=== PATIENT | female | born 1990 | race Caucasian/White ===

== ENCOUNTER → 2021-02-28 15:28 | Outpatient (CLI) | payer OTHER, SELFPAY ==
--- NOTE | ~2021-02-28 | XR_ITS ---
EXAMINATION: XR chest 2V DATE: 02/28/2021 16:01 INDICATION: Chronic neck pain TECHNIQUE: PA and lateral views of the chest were obtained. COMPARISON: Chest radiograph dated 01/06/2015 FINDINGS: The lungs remain clear with no focal airspace opacities, pulmonary edema, pleural effusion or pneumot horax. The cardiomediastinal silhouette is normal. Visualized bones and soft tissues are unremarkable . IMPRESSION: 1. Normal chest radiograph. 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 Normal chest radiograph.
--- NOTE | ~2021-02-28 | XR_ITS ---
EXAMINATION:XR cervical spine 4-5V DATE: 02/28/2021 16:01 INDICATION: Chronic neck pain. TECHNIQUE: AP, lateral, lateral swimmers and odontoid views of the cervical spine are provided. COMPARISON: None FINDINGS: Vertebral body heights are normal. Slight kyphosis at C5-C6 with negligible anterior disc height loss . Remaining disc heights are normal. Odontoid is intact. Normal atlantoaxial interval. Mild facet os teoarthritis at C7-T1. Prevertebral soft tissues are normal. Visualized apices of the lungs are filemon r. IMPRESSION: 1. Slight kyphosis with negligible anterior disc height loss at C5-C6. Reviewed, dictated and finalized at location A. [facility]
== END ==
PROVIDERS: PCP Emergency Medicine; Visit Provider Emergency Medicine
DX: Z72.0 Tobacco use (principal)
CPT/HCPCS: 71046; 72050

== ENCOUNTER → 2021-07-21 01:38 | Outpatient (CLI) | payer OTHER, SELFPAY ==
[2021-07-21 16:55] LABS: SARS-CoV-2 RNA PCR Negative
== END ==
PROVIDERS: PCP Emergency Medicine; Visit Provider Emergency Medicine
DX: J06.9 Acute upper respiratory infection, unspecified (principal); Z20.822 Contact with and (suspected) exposure to COVID-19
CPT/HCPCS: C9803; U0003; U0005

== ENCOUNTER 2021-08-22 14:07 | Emergency (ER) | payer OTHER, SELFPAY ==
[2021-08-22 14:28] VITALS: BP 112/79; PULSE 78; RESP 18; TEMP 36.8; O2SAT 97
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
--- NOTE | 2021-08-22 15:30 | PC.NURSE ---
MEDS present and assessed patient.
[2021-08-22] MEDS: AZITHROMYCIN 250 MG TABLET 2000 MG PO (16:10)
[2021-08-22 16:20] LABS: Appearance Urine Clear (Clear); Bilirubin Urine Negative (Negative); Blood Urine Trace-lysed (Negative); Color Urine Yellow (Yellow); Glucose Urine UA Negative (Negative); Ketones Urine Negative (Negative); Leukocyte Esterase Ur 2+ LEU/UL (Negative); Nitrate Urine Negative (Negative); Protein Urine Negative (Negative); Specific Grav Ur 1.025 (1.001-1.035); Urobilinogen Urine 0.2 mg/dL (<2.0); pH Urine 5.5 (5.0-9.0)
[2021-08-22 16:28] LABS: Mucus Urine Rare /lpf; Squamous Epithelial Cell Urine Many /hpf (Few)
[2021-08-22 16:29] LABS: Add Urine Microscopic? YES
== END 2021-08-22 16:34 | disposition home or self-care (01) ==
LOC: ANHED 15:56
PROVIDERS: Emergency Provider Nurse Practitioner Family; PCP Emergency Medicine
DX: T74.21XA Adult sexual abuse, confirmed, initial encounter (principal); Y07.9 Unspecified perpetrator of maltreatment and neglect; F17.200 Nicotine dependence, unspecified, uncomplicated
CPT/HCPCS: 81001; 81025; 99285; A9270

== ENCOUNTER 2022-04-11 13:58 | Emergency (ER) | payer OTHER, SELFPAY ==
--- NOTE | ~2022-04-11 | CT_ITS ---
EXAMINATION: CT abdomen pelvis w con DATE: 04/11/2022 17:36 INDICATION: Right lower quadrant abdominal pain. Bilateral flank pain. Urinary tract infection. TECHNIQUE: Computed tomography (CT) of the abdomen and pelvis was performed with 100 mL Omnipaque-350 intravenous contrast. Automated exposure control and iterative reconstruction technique were employe d. The dose-length product was 288.55 mGy-cm. COMPARISON: None FINDINGS: Lung bases are clear. Heart size is normal. No pericardial or pleural effusion. Mild focal hepatic st eatosis at the ligamentum teres. Liver, gallbladder, spleen, pancreas, bilateral adrenal glands and l eft kidney are normal. There are a couple geographic regions of decreased parenchymal enhancement wit h in edema resulting associated slight bulging of the renal capsule at the upper and lower poles of t he right kidney consistent with pyelonephritis. There is mild colonic diverticulosis with a sigmoid p redominance. There is no adjacent inflammatory change to suggest diverticulitis. Small bowel and raven endix are normal. Bladder, anteverted uterus and right adnexa are normal. 1 cm likely corpus luteum c yst with thin peripheral rim of enhancement at the left ovary. Minimal likely physiologic free fluid in the pelvis. No abscess or free intraperitoneal gas. Multiple phleboliths in the pelvis. No patholo gically enlarged abdominal or pelvic lymphadenopathy. Bones are unremarkable. IMPRESSION: 1. Small hypoenhancing likely edematous regions in the right kidney consistent with pyelonephritis. Reviewed, dictated and finalized at location A. [facility]
--- NOTE | ~2022-04-11 | US_ITS ---
EXAMINATION: US pelvic complete w TV DATE: 04/11/2022 17:05 INDICATION: Suspicion for pelvic inflammatory disease with right lower quadrant pain TECHNIQUE: Multiple transabdominal and endovaginal sonographic images of the pelvis were obtained. COMPARISON: None. FINDINGS: The uterus measures 7.9 x 3.7 x 4.7 cm. The endometrial complex measures mm in thickness. The right ovary is unable to be visualized due to shadowing bowel in the right adnexal region. The left ovary m easures 2.5 x 1.2 x 2.0 cm. A couple small anechoic left ovarian cysts/follicles, the larger measurin g 10 mm. Vascular flow identified in the left ovary on color Doppler. Minimal anechoic likely physiol ogic free fluid in the cul-de-sac. IMPRESSION: 1. Normal uterus and left ovary with minimal likely physiologic free fluid in the cul-de-sac. 2. Shadowing bowel gas obscures the right adnexal region. 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 Normal uterus and left ovary with minimal likely physiologic free fluid in t he cul-de-sac. 2. Shadowing bowel gas obscures the right adnexal region.
[2022-04-11 14:14] VITALS: BP 131/78; PULSE 97; RESP 16; TEMP 36.3; O2SAT 100
--- NOTE | 2022-04-11 14:31 | ED.GENADULT ---
HPI - General Adult General Chief complaint: Urogenital-Female Stated complaint: std check Time Seen by Provider: 04/11/22 14:15 Source: patient Mode of arrival: ambulatory Limitations: no limitations History of Present Illness HPI narrative: Patient is a 31 y/o female who presents to the ED with c/o dysuria, flank pain, vaginal discharge. Patient reports having dysuria, lower abdominal pain, abnormal vaginal discharge for the last week and a half. She thought she may have a urinary tract infection or STD and started taking [id number] UTI pills. She does mention she is currently sexually active and was recently exposed to a partner who stated they started taking penicillin, but they would not say why. Patient would like to be tested and treated for STDs. Over the last 2 days, patient has had lower back pain, as well. She has an appt with her PCP at [facility] on Saturday, but patient states she could not wait that long. She denies any fevers or chills, nausea, vomiting, diarrhea, constipation, hematuria. Related Data Allergies Allergy/AdvReac Type Severity Reaction Status Date / Time cephalexin Allergy Intermediate Hives / Verified 04/11/22 14:19 Red Face sulfamethoxazole Allergy Intermediate Hives / Verified 04/11/22 16:25 Red Face trimethoprim Allergy Intermediate Hives / Verified 04/11/22 16:25 Red Face amoxicillin Allergy Unknown Hives Verified 04/11/22 16:25 clindamycin Allergy Unknown Hives Verified 04/11/22 16:25 Penicillins Allergy Unknown Nausea and Verified 04/11/22 16:25 Vomiting Sulfa (Sulfonamide Allergy Unknown Hives Verified 04/11/22 16:25 Antibiotics) Review of Systems Review of Systems: CONSTITUTIONAL: Denies fever, chills, or sweats. CARDIOVASCULAR: Denies chest pain, palpitations, or edema. RESPIRATORY: Denies cough or dyspnea. GASTROINTESTINAL: See HPI. GENITOURINARY: See HPI. SKIN: Denies rash or itching. MUSCULOSKELETAL: See HPI. All systems reviewed & are unremarkable except as noted in HPI and below PMFSH Past Medical History Medical History Chronic active hepatitis C Surgical History Surgical History No pertinent past surgical history Social History Social History Smoking status: Current every day smoker Substance use: former Substance use type: heroin, amphetamines and methamphetamine Exam Narrative: GENERAL: Well appearing, well-nourished, non-toxic, in no acute distress. HEAD: Normocephalic, atraumatic. NECK: Supple. No adenopathy, no masses. RESPIRATORY: Airway patent, respirations nonlabored. Clear to auscultation bilaterally, no rales, rhonchi, wheezing. CARDIOVASCULAR: Regular rate and rhythm without murmurs, rubs, or gallops. Peripheral pulses 2+ and equal bilaterally. ABDOMINAL: Soft, mild nonspecific tenderness throughout lower abdomen, no significant focal tenderness, nondistended, no hepatosplenomegaly. Normoactive BS. +CVA tenderness to percussion on R side. PELVIC: Normal external genitalia. Moderate amount of malodorous thick white vaginal discharge. Normal-appearing cervix. Minimal discomfort with pelvic exam, no significant CMT. MUSCULOSKELETAL: Moves all extremities. Strength/ROM intact without gross deformities. SKIN: Warm, dry, normal color. No rashes. NEURO: A&O X3. Speech clear. Cranial nerves II-XII grossly intact. Steady gait. No ataxic movements. PSYCHIATRIC: Appropriate mood and affect. Normal interaction. Course Vital Signs Vital signs: Vital Signs Temperature 97.4 F L 04/11/22 14:14 Pulse Rate 97 04/11/22 14:14 Respiratory Rate 16 04/11/22 14:14 Blood Pressure 131/78 04/11/22 14:14 Pulse Oximetry 100 04/11/22 14:14 Temperature 97.4 F L 04/11/22 14:14 Pulse Rate 97 04/11/22 14:14 Respiratory Rate 16 02/0
[2022-04-11 15:05] LABS: Basophils Percent Auto 0.2 % (0.2-1.2); Eosinophils Percent Auto 0.1 % (0-4.4); Hematocrit 43.4 % (37.0-47.0); Hemoglobin 13.6 g/dL (12.0-15.0); Immature Granulocyte Absolute 0.06 K/mm3 (0.00-0.031); Immature Granulocyte Percent A 0.4 % (0-0.5); Lymphocytes Absolute Auto 1.14 K/mm3 (0.9-3.2); Lymphocytes Percent Auto 7.9 % (18.3-44.2); Mean Corpuscular HGB Conc 31.3 g/dl (32-36); Mean Corpuscular Hemoglobin 28.5 pg (26-34); Mean Corpuscular Volume 90.8 fl (80-100); Mean Platelet Volume 8.8 fl (7.4-10.4); Monocytes Absolute Auto 1.1 K/mm3 (0.1-0.6); Monocytes Percent Auto 7.7 % (2.6-8.5); Neutrophils Absolute Auto 12.1 K/mm3 (1.3-6.7); Neutrophils Percent Auto 83.7 % (45.5-73.1); Platelet Count Result 271 k/mm3 (150-375); Red Blood Count 4.78 M/mm3 (4.2-5.4); Red Cell Distribution Width 14.4 % (11.5-14.5); White Blood Count 14.5 K/mm3 (4.5-10.0)
[2022-04-11 15:07] LABS: Appearance Urine Slightly Cloudy (Clear); Bilirubin Urine Negative (Negative); Blood Urine 2+ (Negative); Color Urine Yellow (Yellow); Glucose Urine UA Negative (Negative); Ketones Urine Negative (Negative); Leukocyte Esterase Ur 1+ LEU/UL (Negative); Nitrate Urine Negative (Negative); Protein Urine 1+ mg/dL (Negative); Urobilinogen Urine 0.2 mg/dL (<2.0)
[2022-04-11 15:16] LABS: Alanine Aminotransferase 14 U/L (6-35); Albumin Level 4.4 g/dL (3.5-5.1); Alkaline Phosphatase 112 U/L (38-126); Anion Gap 3 mmol/L (8-16); Aspartate Amino Transferase 20 U/L (14-36); Bilirubin,Total 0.6 mg/dL (0.2-1.3); Blood Urea Nitrogen 11 mg/dL (7-17); Calcium 9.2 mg/dL (8.4-10.2); Carbon Dioxide 30 mmol/L (22-30); Chloride 101 mmol/L (98-107); Estimated CRCL calculation 98 ml/min; Estimated Glomerular Filt Rate > 60; Glucose 95 mg/dL (65-110); Sodium 134 mmol/L (137-145)
[2022-04-11 15:24] LABS: Add Urine Microscopic? YES; Bacteria Urine Trace /hpf; Mucus Urine Rare /lpf; Squamous Epithelial Cell Urine Few /hpf (Few); WBC Urine 51-75 /hpf
[2022-04-11 15:57] LABS: HIV 1/2 Ab P24 Ag Result Negative (Negative)
[2022-04-11] MEDS: SODIUM CHLORIDE 0.9% IV 1,000 ML 999 ML IV CONT (17:20)
[2022-04-11] MEDS: AZITHROMYCIN 250 MG TABLET 2000 MG PO (18:27)
[2022-04-11] MEDS: GENTAMICIN SULFATE INJ 80 MG/2 ML VIAL 240 MG IM (19:02)
[2022-04-11 19:19] VITALS: BP 118/79; PULSE 77; RESP 18; TEMP 36.6; O2SAT 99
[2022-04-12 16:03] LABS: Rapid Plasma Reagin Non-Reactive (NonReactive)
== END 2022-04-11 19:21 | disposition home or self-care (01) ==
PROVIDERS: Emergency Provider Physician Assistant; PCP Emergency Medicine
DX: N12 Tubulo-interstitial nephritis, not specified as acute or chronic (principal); A59.9 Trichomoniasis, unspecified; Z20.2 Contact with and (suspected) exposure to infections with a predominantly sexual mode of transmission
CPT/HCPCS: 36415; 74177; 76830; 76856; 80053; 81001; 81025; 85025; 86592; 86703; 87070; 87077; 87086; 87186; 87491; 87591; 87808; 96361; 96365; 96372; 99284; A9270; G0432; J0131; J1580; J7030; Q9967

== ENCOUNTER 2022-08-29 10:25 | Emergency (ER) | payer OTHER, SELFPAY ==
--- NOTE | ~2022-08-29 | US_ITS ---
EXAMINATION: US pelvic complete w TV DATE: 08/29/2022 12:19 INDICATION: Pelvic cramping and low back pain TECHNIQUE: Multiple transabdominal and endovaginal sonographic images of the pelvis were obtained. COMPARISON: 04/11/2022 FINDINGS: The uterus measures 9.3 x 6.4 x 4.9 cm. The endometrial complex measures 9 mm. The right ov zoey measures 1.9 x 2.2 x 2.2 cm. The left ovary measures 3.2 x 2.5 x 1.4 cm. There is normal vascular flow in the ovaries. There is no free fluid in the pelvis. IMPRESSION: 1. No sonographic correlate for the patient's symptoms. Reviewed, dictated and finalized at location []
[2022-08-29 10:27] VITALS: BP 121/74; PULSE 69; RESP 16; TEMP 36.9; O2SAT 99
[2022-08-29 10:44] VITALS: O2SAT 95
--- NOTE | 2022-08-29 10:44 | ED.FEMALEGU ---
HPI - Female Genitourinary General Chief complaint: Urogenital-Female Stated complaint: UTI Time Seen by Provider: 08/29/22 10:33 History of Present Illness HPI Narrative: Patient is a 32-year-old female here for evaluation of pelvic cramping, bilateral low back pain, malodorous vaginal discharge and dark urine x2 days. Patient is 9 days status post elective D&C at 9 weeks. Patient was doing well until 2 days ago when she developed the above symptoms. She denies any vaginal bleeding, dysuria, urgency, frequency, unilateral low back pain, fevers or chills. She has attempted ibuprofen 600 without relief of her symptoms. She is requesting STI tests. Related Data Allergies Allergy/AdvReac Type Severity Reaction Status Date / Time cephalexin Allergy Intermediate Hives / Verified 08/29/22 10:50 Red Face sulfamethoxazole Allergy Intermediate Hives / Verified 08/29/22 10:50 Red Face trimethoprim Allergy Intermediate Hives / Verified 08/29/22 10:50 Red Face amoxicillin Allergy Unknown Hives Verified 08/29/22 10:50 clindamycin Allergy Unknown Hives Verified 08/29/22 10:50 Penicillins Allergy Unknown Nausea and Verified 08/29/22 10:50 Vomiting Sulfa (Sulfonamide Allergy Unknown Hives Verified 08/29/22 10:50 Antibiotics) Review of Systems Review of Systems: Gen.: Denies fevers or chills Eyes: Denies eye pain or visual change ENT: Denies congestion Respiratory: Denies shortness of breath or cough CV: Denies chest pain or palpitations GI: Reports pelvic pain reports dark urine and vaginal discharge Musculoskeletal: Denies back pain or muscle pain Neuro: Denies numbness, tingling, weakness or focal weakness Skin: Denies rash Except as documented, all other systems reviewed and negative [facility] Past Medical History Medical History Chronic active hepatitis C Surgical History Surgical History No pertinent past surgical history Social History Social History Smoking status: Current every day smoker Substance use: former Substance use type: heroin, amphetamines and methamphetamine Exam Narrative: APPEARANCE: No acute distress, nontoxic, resting in bed EYES: EOMI HEENT: Normocephalic, atraumatic, OMM RESPIRATORY: No respiratory distress Clear to auscultation bilaterally with no rhonchi wheezing or rales. CARDIOVASCULAR: Regular rate and rhythm without murmurs rubs or gallops. 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 no CMT. MUSCULOSKELETAL: Moves all extremities. No clubbing, cyanosis or edema. NEURO: Awake and alert. Following commands, speech normal, no focal deficits SKIN:: Warm, dry. No rashes lesions or abrasions PSYCHIATRIC: Normal affect/mood, Course Vital Signs Vital signs: Vital Signs Temperature 98.5 F 08/29/22 10:27 Pulse Rate 69 08/29/22 10:27 Respiratory Rate 16 08/29/22 10:27 Blood Pressure 121/74 08/29/22 10:27 Pulse Oximetry 99 08/29/22 10:27 Oxygen Delivery Room Air 08/29/22 10:27 Temperature 98.5 F 08/29/22 10:27 Pulse Rate 69 08/29/22 10:27 Respiratory Rate 16 08/29/22 10:27 Blood Pressure 107/72 08/29/22 10:46 Pulse Oximetry 99 08/29/22 10:47 Oxygen Delivery Room Air 08/29/22 10:27 MDM - Female Genitourinary MDM Narrative Medical decision making narrative: 32-year-old female here for evaluation of lower abdominal cramping several days after elective D&C with some urinary symptoms. She is nontoxic in appearance with normal vital signs, no abdominal tenderness on examination. Her quant is 16.2. Ultrasound without evidence of retained products. Urine does appear infected.
[2022-08-29 10:45] VITALS: BP 115/79; O2SAT 98
[2022-08-29 10:46] VITALS: BP 107/72; O2SAT 100
[2022-08-29 10:47] VITALS: O2SAT 99
[2022-08-29 11:41] LABS: Basophils Percent Auto 0.3 % (0.2-1.2); Eosinophils Absolute Auto 0.1 K/mm3 (0-0.3); Eosinophils Percent Auto 1.2 % (0-4.4); Hematocrit 36.1 % (37.0-47.0); Hemoglobin 11.8 g/dL (12.0-15.0); Immature Granulocyte Absolute 0.01 K/mm3 (0.00-0.031); Immature Granulocyte Percent A 0.2 % (0-0.5); Lymphocytes Absolute Auto 1.39 K/mm3 (0.9-3.2); Lymphocytes Percent Auto 23.1 % (18.3-44.2); Mean Corpuscular HGB Conc 32.7 g/dl (32-36); Mean Corpuscular Hemoglobin 29.3 pg (26-34); Mean Corpuscular Volume 89.6 fl (80-100); Mean Platelet Volume 9.1 fl (7.4-10.4); Monocytes Absolute Auto 0.4 K/mm3 (0.1-0.6); Monocytes Percent Auto 6.5 % (2.6-8.5); Neutrophils Absolute Auto 4.1 K/mm3 (1.3-6.7); Neutrophils Percent Auto 68.7 % (45.5-73.1); Platelet Count Result 290 k/mm3 (150-375); Red Blood Count 4.03 M/mm3 (4.2-5.4)
[2022-08-29 11:44] LABS: Appearance Urine Cloudy (Clear); Bacteria Urine 1+ /hpf; Bilirubin Urine Negative (Negative); Blood Urine 2+ (Negative); Color Urine Yellow (Yellow); Glucose Urine UA Negative (Negative); Ketones Urine Negative (Negative); Leukocyte Esterase Ur 1+ LEU/UL (Negative); Nitrate Urine Negative (Negative); Non Pathogenic Casts 0-2; Protein Urine Negative (Negative); Specific Grav Ur 1.026 (1.001-1.035); Squamous Epithelial Cell Urine Few /hpf (Few); pH Urine 5.5 (5.0-9.0)
[2022-08-29 11:51] LABS: Anion Gap 5 mmol/L (8-16); Blood Urea Nitrogen 18 mg/dL (7-17); Calcium 8.9 mg/dL (8.4-10.2); Carbon Dioxide 21 mmol/L (22-30); Chloride 111 mmol/L (98-107); Estimated CRCL calculation 97 ml/min; Estimated Glomerular Filt Rate > 60; Glucose 97 mg/dL (65-110); Potassium 3.8 mmol/L (3.4-5.0); Sodium 137 mmol/L (137-145)
--- NOTE | 2022-08-29 12:04 | PC.NURSE ---
pt. off floor to ultrasound at 11:43 and returned to room at 12:00
[2022-08-29 12:05] LABS: Add Urine Microscopic? YES
[2022-08-29 12:08] LABS: Beta HCG Quantitative 16.21 mIU/ML
== END 2022-08-29 13:05 | disposition home or self-care (01) ==
PROVIDERS: Emergency Provider Physician Assistant
DX: N39.0 Urinary tract infection, site not specified (principal); B18.2 Chronic viral hepatitis C; F17.210 Nicotine dependence, cigarettes, uncomplicated; Z98.890 Other specified postprocedural states
CPT/HCPCS: 36415; 76830; 76856; 80048; 81001; 84702; 85025; 87070; 87086; 87491; 87591; 87808; 99284

== ENCOUNTER 2023-02-19 12:11 | Emergency (ER) | payer OTHER, SELFPAY ==
[2023-02-19 12:20] VITALS: BP 133/81; PULSE 69; RESP 16; TEMP 37; O2SAT 99
--- NOTE | 2023-02-19 12:37 | ED.GENADULT ---
HPI - General Adult General Chief complaint: Wound/Laceration Stated complaint: Rash/Cough Source: patient Mode of arrival: ambulatory Limitations: no limitations History of Present Illness HPI narrative: 32 y/o female presented for c/o cough with yellow/green sputum for a few days. Endorses subjective fever yesterday. Also reports itchy rash to left lower chest spreading over the past few weeks. Started as a small red round area. Has been applying hibiclens, alcohol, and neosporin. Denies any other locations of skin lesions. Denies lip, tongue, or throat swelling, shortness of breath or wheezing. Denies changes to soap, detergent, lotion, or any other exposures. No one else in the house or any contacts with similar symptoms. Smokes 1/2ppd. Related Data Allergies Allergy/AdvReac Type Severity Reaction Status Date / Time cephalexin Allergy Intermediate Hives / Verified 02/19/23 12:24 Red Face sulfamethoxazole Allergy Intermediate Hives / Verified 02/19/23 12:24 Red Face trimethoprim Allergy Intermediate Hives / Verified 02/19/23 12:24 Red Face amoxicillin Allergy Unknown Hives Verified 02/19/23 12:24 clindamycin Allergy Unknown Hives Verified 02/19/23 12:24 Penicillins Allergy Unknown Nausea and Verified 02/19/23 12:24 Vomiting Sulfa (Sulfonamide Allergy Unknown Hives Verified 02/19/23 12:24 Antibiotics) Review of Systems Review of Systems: CONSTITUTIONAL: Denies body aches, fever, chills, or sweats. EYES: Denies visual changes, redness, or discharge. ENT: Denies rhinorrhea, congestion CARDIOVASCULAR: Denies chest pain, palpitations, or edema. RESPIRATORY: reports cough Denies dyspnea. GASTROINTESTINAL: Denies abdominal pain, nausea, vomiting, or diarrhea. SKIN: reports rash MUSCULOSKELETAL: Denies back pain, joint pain, or myalgia. NEUROLOGIC: Denies headache, numbness, tingling, or weakness. [facility] Past Medical History Medical History Chronic active hepatitis C Surgical History Surgical History No pertinent past surgical history Social History Social History Smoking status: Current every day smoker Substance use: former Substance use type: heroin, amphetamines and methamphetamine Comments At time of signature, I have reviewed and agree with nursing past medical, surgical, social and family history unless otherwise noted. Please see nursing chart for further information. There is no relevant family history pertinent to the presenting complaint Exam Narrative: GENERAL: Well-appearing HEAD: Normocephalic, atraumatic. EYES: conjunctivae clear, and EOMI. ENT: Mucous membranes moist. Oropharynx without edema, erythema or lesions. NECK: Supple. No lymphadenopathy CHEST: Clear to auscultation. HEART: Regular rate and rhythm. SKIN: Warm, dry. Erythematous patch to left lower anterior ribs approx 4cm diameter. Center is clear and smooth with red edges. No induration, fluctuance, or drainage. Nontender. NEURO: Alert and oriented x3. GI: Abdomen image: 1. area of rash Course Course Emergency Course: Patient is aware of diagnosis, understands and agrees to treatment plan. Anticipatory guidance given. Patient agrees to follow-up as directed and is aware of reasons to seek care at the emergency department. Portions of this record may have been created with voice recognition software Level of Care: Express Care Visit Vital Signs Vital signs: Vital Signs Temperature 98.6 F 02/19/23 12:20 Pulse Rate 69 02/19/23 12:20 Respiratory Rate 16 02/19/23 12:20 Blood Pressure 133/81 02/19/23 12:20 Pulse Oximetry 99 02/19/23 12:20 Oxygen Delivery Room Air 02/19/23 12:20 Temperature 98.6 F 02/19/23 12:20 Pulse Rate 69 02/19/23 12:20 Respiratory Rate 16 02/19/23 12:20 B
== END 2023-02-19 13:09 | disposition home or self-care (01) ==
PROVIDERS: Emergency Provider Nurse Practitioner Family
DX: L30.9 Dermatitis, unspecified (principal); J40 Bronchitis, not specified as acute or chronic; B18.2 Chronic viral hepatitis C; F17.210 Nicotine dependence, cigarettes, uncomplicated
CPT/HCPCS: 99213; G0463

== ENCOUNTER 2023-05-03 15:33 | Emergency (ER) | payer OTHER, SELFPAY ==
[2023-05-03 15:49] VITALS: BP 125/77; PULSE 75; RESP 16; TEMP 36.9; O2SAT 100
--- NOTE | 2023-05-03 16:01 | ED.FEMALEGU ---
HPI - Female Genitourinary General Chief complaint: Urogenital-Female Stated complaint: STD Time Seen by Provider: 05/03/23 15:34 Source: patient Mode of arrival: ambulatory Limitations: no limitations History of Present Illness HPI Narrative: Patient is a 32-year-old female who presents with concern for STD testing. Patient has had abnormal discharge intermittently for 2 weeks. Patient states she has BV frequently. Patient also concern for due to breast tenderness. Last menstrual cycle was April 09. Has had a new partner for the last month. MD elicited complaint: dysuria Related Data Allergies Allergy/AdvReac Type Severity Reaction Status Date / Time cephalexin Allergy Intermediate Hives / Verified 05/03/23 16:09 Red Face sulfamethoxazole Allergy Intermediate Hives / Verified 05/03/23 16:09 Red Face trimethoprim Allergy Intermediate Hives / Verified 05/03/23 16:09 Red Face amoxicillin Allergy Unknown Hives Verified 05/03/23 16:09 clindamycin Allergy Unknown Hives Verified 05/03/23 16:09 Penicillins Allergy Unknown Nausea and Verified 05/03/23 16:09 Vomiting Sulfa (Sulfonamide Allergy Unknown Hives Verified 05/03/23 16:09 Antibiotics) Review of Systems Review of Systems: All systems reviewed & are unremarkable except as noted in HPI and below Constitutional: Constitutional: Denies chills, Denies fever(s), Denies headache(s), Denies malaise and Denies weakness Eyes: Eyes: Denies change in vision, Denies eye discharge and Denies irritation ENT: Denies otalgia, Denies headache(s), Denies nasal congestion, Denies nasal discharge, Denies sinus pain and Denies sore throat Cardiovascular: Cardiovascular: Denies chest pain, Denies edema, Denies palpitations and Denies dyspnea Respiratory: Respiratory: Denies cough and Denies dyspnea Gastrointestinal: Gastrointestinal: Denies abdominal pain, Denies diarrhea, Denies nausea and Denies vomiting Genitourinary: Genitourinary: Denies hematuria, Denies nocturia, Denies dysuria, Denies flank pain, Denies urinary urgency, Reports vaginal discharge and Reports vaginal odor Musculoskeletal: Musculoskeletal: Denies back pain and Denies numbness Integumentary/Breasts: Skin/Breast: Denies pruritus and Denies rash Neurologic: Denies headache(s), Denies numbness and Denies weakness Psychiatric: Psychiatric: Reports no additional psychiatric complaints Endocrine: Endocrine: Denies palpitations PMFSH Past Medical History Medical History Chronic active hepatitis C Surgical History Surgical History No pertinent past surgical history Social History Social History Smoking status: Current every day smoker Substance use: former Substance use type: heroin, amphetamines and methamphetamine Comments At time of signature, agree with nursing past medical, surgical, social and family history. There is no relevant family history pertinent to the presenting complaint. Exam Const: General: cooperative, healthy appearing, comfortable, no acute distress and well nourished Nutritional Appearance: well nourished Orientation/consciousness: patient oriented x3 HENMT: Head: normocephalic and atraumatic Ears: external ears normal Face/Nose/Sinus: Normal external nose present, Normal nares present and normal facial exam Face and sinus: normal facial exam Eyes: General: appearance normal, both eyes and all related structures Pupils: Equal, round and reactive pupils present EOM: EOMs intact bilaterally Neck: Neck: normal visual inspection, full ROM and supple Chest: Chest palpation & inspection: normal inspection of the chest Resp: Effort & Inspection: normal respiratory effort and able to speak in complete sentences Cardio: Rate: regular rate Rhythm: regular rhythm GI: Inspection:
[2023-05-05 12:56] LABS: Trichomonas Vag PCR NOT DETECTED (NOT DETECTE)
[2023-05-05 12:57] LABS: Chlamydia trachomatis NOT DETECTED (NOT DETECTE); Neisseria gonorrhoeae PCR NOT DETECTED (NOT DETECTE)
== END 2023-05-03 16:40 | disposition home or self-care (01) ==
PROVIDERS: Emergency Provider Nurse Practitioner Family
DX: N76.0 Acute vaginitis (principal); Z20.2 Contact with and (suspected) exposure to infections with a predominantly sexual mode of transmission; F17.200 Nicotine dependence, unspecified, uncomplicated; B18.2 Chronic viral hepatitis C
CPT/HCPCS: 81003; 81025; 87491; 87591; 87661; 99213; G0463

== ENCOUNTER 2023-06-05 10:21 | Emergency (ER) | payer OTHER, SELFPAY ==
--- NOTE | ~2023-06-05 | US_ITS ---
EXAMINATION: US pelvic complete w TV DATE: 06/05/2023 12:24 INDICATION: Right lower quadrant abdominal pain. TECHNIQUE: Multiple transabdominal and transvaginal sonographic images of the pelvis were obtained. COMPARISON: Ultrasound pelvis 08/29/2022 FINDINGS: TRANSABDOMINAL ULTRASOUND: The uterus measures 8.7 x 3.7 x 5.1 cm. There is no free fluid in the pelvis. TRANSVAGINAL ULTRASOUND: The endometrial complex measures 6 mm in thickness. The right ovary measures 2.8 x 1.2 x 1.7 cm. The left ovary measures 2.0 x 2.0 x 2.4 cm. There is normal vascular flow in the ovaries. IMPRESSION: 1. Normal pelvis. Reviewed, dictated and finalized at location A. IMPRESSION: 1. Normal pelvis.
--- NOTE | ~2023-06-05 | CT_ITS ---
EXAMINATION: CT abdomen pelvis w con DATE: 06/05/2023 13:05 INDICATION: Low abdominal pain. Pelvic pain. TECHNIQUE: Computed tomography (CT) of the abdomen and pelvis was performed with 100 mL Omnipaque 350 intravenous contrast. Automated exposure control and iterative reconstruction technique were employe d. The dose-length product was 229.70 mGy-cm. COMPARISON: CT abdomen and pelvis 08/09/2022 FINDINGS: The visualized portions of the lung bases demonstrate minimal atelectasis. No pleural effus ion. The heart size is normal. No pericardial effusion. The liver, gallbladder, spleen, pancreas, adr enal glands, and kidneys are normal. There are no dilated loops of bowel. The appendix is normal. The re are no pathologically enlarged lymph nodes. There is no free intraperitoneal fluid. There is mild lumbar spondylosis. IMPRESSION: 1. No etiology for the patient's symptoms. Reviewed, dictated and finalized at location A.
[2023-06-05 10:58] VITALS: BP 118/75; PULSE 72; TEMP 36.4; O2SAT 100
[2023-06-05 11:51] LABS: Basophils Percent Auto 0.3 % (0.2-1.2); Eosinophils Absolute Auto 0.1 K/mm3 (0-0.3); Eosinophils Percent Auto 0.8 % (0-4.4); Hematocrit 40.3 % (37.0-47.0); Hemoglobin 12.7 g/dL (12.0-15.0); Immature Granulocyte Absolute 0.01 K/mm3 (0.00-0.031); Immature Granulocyte Percent A 0.2 % (0-0.5); Lymphocytes Absolute Auto 1.51 K/mm3 (0.9-3.2); Lymphocytes Percent Auto 23.1 % (18.3-44.2); Mean Corpuscular HGB Conc 31.5 g/dl (32-36); Mean Corpuscular Hemoglobin 29.1 pg (26-34); Mean Corpuscular Volume 92.4 fl (80-100); Mean Platelet Volume 9.5 fl (7.4-10.4); Monocytes Absolute Auto 0.6 K/mm3 (0.1-0.6); Monocytes Percent Auto 8.4 % (2.6-8.5); Neutrophils Absolute Auto 4.4 K/mm3 (1.3-6.7); Neutrophils Percent Auto 67.2 % (45.5-73.1); Platelet Count Result 263 k/mm3 (150-375); Red Blood Count 4.36 M/mm3 (4.2-5.4); Red Cell Distribution Width 13.8 % (11.5-14.5); White Blood Count 6.5 K/mm3 (4.5-10.0)
[2023-06-05 11:58] LABS: Appearance Urine Cloudy (Clear); Bacteria Urine None Seen /hpf; Bilirubin Urine Negative (Negative); Blood Urine Negative (Negative); Color Urine Yellow (Yellow); Glucose Urine UA Negative (Negative); Ketones Urine Negative (Negative); Leukocyte Esterase Ur Negative LEU/UL (Negative); Nitrate Urine Negative (Negative); Non Pathogenic Casts 0-2; Protein Urine Negative (Negative); RBC Urine 0-2 /hpf (0-2); Squamous Epithelial Cell Urine Occasional /hpf (Few); Urobilinogen Urine 0.2 mg/dL (<2.0); WBC Urine 0-5 /hpf (0-3)
[2023-06-05 11:59] LABS: Add Urine Microscopic? YES
[2023-06-05 12:03] LABS: Alanine Aminotransferase 13 U/L (6-35); Albumin Level 4.2 g/dL (3.5-5.1); Alkaline Phosphatase 100 U/L (38-126); Anion Gap 3 mmol/L (4-12); Aspartate Amino Transferase 21 U/L (14-36); Bilirubin,Total 0.4 mg/dL (0.2-1.3); Blood Urea Nitrogen 20 mg/dL (7-17); Calcium 9.5 mg/dL (8.4-10.2); Carbon Dioxide 29 mmol/L (22-30); Chloride 108 mmol/L (98-107); Estimated CRCL calculation 74 ml/min; Estimated Glomerular Filt Rate > 60; Glucose 82 mg/dL (65-110); Potassium 4.4 mmol/L (3.4-5.0); Sodium 140 mmol/L (137-145)
[2023-06-05] MEDS: KETOROLAC 30 MG/ML VIAL (*BKC) IV PUSH (12:50)
--- NOTE | 2023-06-05 13:22 | ED.GENADULT ---
HPI - General Adult General Chief complaint: Unspecified Stated complaint: pain after intercourse Time Seen by Provider: 06/05/23 10:56 History of Present Illness HPI narrative: Patient is a 32-year-old female who presents ER with lower abdominal pain in the pelvic region. Ongoing over last 4 days. Pain was sudden onset while having intercourse with her boyfriend. She felt the popping sound. Her boyfriend feels like there is a abnormal feeling inside the vagina since then. No vaginal bleeding or vaginal discharge. No fevers chills or sweats. Cannot identify aggravating or alleviating factors. She has not taken any oral pain medication. Related Data Allergies Allergy/AdvReac Type Severity Reaction Status Date / Time cephalexin Allergy Intermediate Hives / Verified 06/05/23 10:33 Red Face sulfamethoxazole Allergy Intermediate Hives / Verified 06/05/23 10:33 Red Face trimethoprim Allergy Intermediate Hives / Verified 06/05/23 10:33 Red Face amoxicillin Allergy Unknown Hives Verified 06/05/23 10:33 clindamycin Allergy Unknown Hives Verified 06/05/23 10:33 Penicillins Allergy Unknown Nausea and Verified 06/05/23 10:33 Vomiting Sulfa (Sulfonamide Allergy Unknown Hives Verified 06/05/23 10:33 Antibiotics) Review of Systems Review of Systems: All systems reviewed & are unremarkable except as noted in HPI and below Constitutional: Constitutional: Reports no additional constitutional complaints ENT: Reports system reviewed and no additional complaints, except as documented Cardiovascular: Cardiovascular: Reports no additional cardiovascular complaints Respiratory: Respiratory: Reports no additional respiratory complaints Gastrointestinal: Gastrointestinal: Reports abdominal pain, Denies constipation, Denies diarrhea, Denies nausea and Denies vomiting Genitourinary: Genitourinary: Denies abnormal vaginal bleeding, Denies nocturia, Reports dyspareunia, Denies dysuria, Reports pelvic pain and Denies vaginal discharge [facility] Past Medical History Medical History Chronic active hepatitis C Surgical History Surgical History No pertinent past surgical history Social History Social History Smoking status: Current every day smoker Substance use: former Substance use type: heroin, amphetamines and methamphetamine Exam Narrative: GENERAL: Well-appearing, well-nourished, and in no acute distress. HEAD: Normocephalic, atraumatic. ENT: Mucous membranes moist. CHEST: Clear to auscultation. No respiratory distress. HEART: Regular rate and rhythm. Normal peripheral pulses. ABDOMEN: Soft, Tender palpation right lower quadrant and right adnexa with guarding, nondistended.: Normal-appearing external genitalia. Speculum exam with normal appearing cervix without significant discharge. No bleeding. No CMT. EXTREMITIES: Normal range of motion. No edema. SKIN: Warm, dry, no rash. NEURO: Alert and oriented x3. PSYCH: Normal mood and affect. Course Course Emergency Course: patient informed of all lab and imaging results. Toradol for pain. Symptoms felt to be potentially related to a ruptured ovarian cyst. Discharge home. Vital Signs Vital signs: Vital Signs Temperature 97.6 F 06/05/23 10:58 Pulse Rate 72 06/05/23 10:58 Blood Pressure 118/75 06/05/23 10:58 Pulse Oximetry 100 06/05/23 10:58 Temperature 97.6 F 06/05/23 10:58 Pulse Rate 72 06/05/23 10:58 Blood Pressure 118/75 06/05/23 10:58 Pulse Oximetry 100 06/05/23 10:58 Medical Decision Making Vital Signs Vital Signs: Vital Signs Temperature 97.6 F 06/05/23 10:58 Pulse Rate 72 06/05/23 10:58 Blood Pressure 118/75 06/05/23 10:58 Pulse Oximetry 100 06/05/23 10:58 Temperature 97.6 F 06/05/23 10:58 Pulse
== END 2023-06-05 13:47 | disposition home or self-care (01) ==
PROVIDERS: Emergency Provider Emergency Medicine
DX: R10.2 Pelvic and perineal pain (principal); B18.2 Chronic viral hepatitis C; F17.200 Nicotine dependence, unspecified, uncomplicated
CPT/HCPCS: 36415; 74177; 76830; 76856; 80053; 81001; 81025; 85025; 96374; 99284; J1885; Q9967

== ENCOUNTER 2023-07-11 16:40 | Emergency (ER) | payer OTHER, SELFPAY ==
[2023-07-11 16:45] VITALS: BP 115/73; PULSE 78; RESP 14; TEMP 37; O2SAT 100
--- NOTE | 2023-07-11 16:45 | ED.FEMALEGU ---
HPI - Female Genitourinary General Chief complaint: Urogenital-Female Stated complaint: low back pain Time Seen by Provider: 07/11/23 16:45 Source: patient Mode of arrival: ambulatory Limitations: no limitations History of Present Illness HPI Narrative: Tuan is a 32-year-old female patient presenting to the clinic today with complaints of left-sided low back pain that has been ongoing for the last several weeks. She was seen in the ER on June 04. A CT of her abdomen pelvis and transvaginal ultrasound completed and those were normal. Her lab work was normal as well at that time. States she lost her antibiotic prescription that they gave her and was told she can come in and get a refill of the antibiotic. She is complaining of pain to the left flank. Denies any urine symptoms or denies any abnormal discharge. Is not concerned for any STI testing at this time. Related Data Allergies Allergy/AdvReac Type Severity Reaction Status Date / Time amoxicillin Allergy Intermediate Hives Verified 07/11/23 16:45 cephalexin Allergy Intermediate Hives / Verified 07/11/23 16:45 Red Face clindamycin Allergy Intermediate Hives Verified 07/11/23 16:45 Penicillins Allergy Intermediate Nausea and Verified 07/11/23 16:45 Vomiting Sulfa (Sulfonamide Allergy Intermediate Hives Verified 07/11/23 16:45 Antibiotics) sulfamethoxazole Allergy Intermediate Hives / Verified 07/11/23 16:45 Red Face trimethoprim Allergy Intermediate Hives / Verified 07/11/23 16:45 Red Face Review of Systems Review of Systems: Pertinent positives per HPI. Patient denies any fever, chills, rash, headache, visual changes, dizziness, cough, runny nose, sore throat, shortness of breath, chest pain, palpitations, nausea, vomiting, diarrhea, constipation, abdominal pain, or any urinary issues. [facility] Past Medical History Medical History Chronic active hepatitis C Surgical History Surgical History No pertinent past surgical history Social History Social History Smoking status: Current every day smoker Substance use: former Substance use type: heroin, amphetamines and methamphetamine Comments At the time of my signature, I reviewed and agree with the nursing past medical, surgical, social, and family history. There is no relevant family history pertinent to the patient complaint. Exam Narrative: General: Well-developed, well nourished, in no apparent distress. Head: Normocephalic, atraumatic. Cardio: Regular rate and rhythm, s1 and s2 normal, no murmur appreciated. Resp: Clear to auscultation bilaterally, no rhonchi, rales, wheezing or rubs. Abdomen: Soft, pliable, bowel sounds present in all quadrants, non-tender to palpation, no organomegly, left flank CVAT tenderness. deferred Course Course Emergency Course: Portions of this record may have been created with voice recognition software. Level of Care: Express Care Visit Vital Signs Vital signs: Vital signs reviewed MDM - Female Genitourinary MDM Narrative Medical decision making narrative: At the time of visit patient is resting comfortably on the exam table. Patient appears to be nontoxic. Labs: UA shows trace of blood. We will send urine for culture Plan: Differential diagnosis include kidney stone, ureteral stone, BV, STI, or muscle strain. Offered to do STI/bacterial vaginosis testing and patient declined. Urinalysis does not show any sign of infection. Reviewed scans from her visit and June and she denies that any the pain has changed. Denies any abnormal discharge. Is requesting antibiotics for her symptoms. Explained to her that she does not have any sign of infection to receive antibiotics. Patient reports that she will follow-up with her primary care doctor. Supportive me
== END 2023-07-11 17:45 | disposition home or self-care (01) ==
PROVIDERS: Emergency Provider Nurse Practitioner Family
DX: R10.9 Unspecified abdominal pain (principal); F17.200 Nicotine dependence, unspecified, uncomplicated
CPT/HCPCS: 81003; 87086; 99213; G0463

== ENCOUNTER 2023-08-29 13:14 | Emergency (ER) | payer OTHER, SELFPAY ==
[2023-08-29 13:44] VITALS: BP 145/79; PULSE 82; RESP 20; TEMP 36.7; O2SAT 99
== END 2023-08-29 16:26 | disposition left against medical advice (07) ==
PROVIDERS: Emergency Provider Emergency Medicine
DX: M54.50 Low back pain, unspecified (principal)
CPT/HCPCS: 99199

== ENCOUNTER 2023-08-31 09:19 | Emergency (ER) | payer OTHER, SELFPAY ==
[2023-08-31 09:27] VITALS: BP 115/76; PULSE 79; RESP 16; TEMP 36.6; O2SAT 97
--- NOTE | 2023-08-31 09:38 | ED.BACK ---
HPI - Back Pain/Injury General Chief Complaint: Back Pain/Injury Stated Complaint: lower back pain Time Seen by Provider: 08/31/23 09:21 History of Present Illness HPI Narrative: 33-year-old female presenting to the emergency department for evaluation for vaginal discharge, painful urination, back pain and abdominal pain. Patient also reports pain during intercourse. Patient was evaluated on 08/28 but had to leave prior to completing her medical workup. Related Data Allergies Allergy/AdvReac Type Severity Reaction Status Date / Time amoxicillin Allergy Intermediate Hives Verified 08/31/23 09:36 cephalexin Allergy Intermediate Hives / Verified 08/31/23 09:36 Red Face clindamycin Allergy Intermediate Hives Verified 08/31/23 09:36 Penicillins Allergy Intermediate Nausea and Verified 08/31/23 09:36 Vomiting Sulfa (Sulfonamide Allergy Intermediate Hives Verified 08/31/23 09:36 Antibiotics) sulfamethoxazole Allergy Intermediate Hives / Verified 08/31/23 09:36 Red Face trimethoprim Allergy Intermediate Hives / Verified 08/31/23 09:36 Red Face Review of Systems Review of Systems: All systems reviewed & are unremarkable except as noted in HPI and below PMFSH Past Medical History Medical History Chronic active hepatitis C Surgical History Surgical History No pertinent past surgical history Social History Social History Smoking status: Current every day smoker Substance use: former Substance use type: heroin, amphetamines and methamphetamine Exam Narrative: APPEARANCE: Well appearing, no pain, no distress, well-nourished. HEAD: normocephalic, atraumatic. EYES: PERRLA/EOMI, conjunctivae clear. NOSE: Normal no drainage EARS:TMS clear with good light reflex. THROAT: Pharynx clear, no exudate. NECK: Supple. No adenopathy, no masses. RESPIRATORY: Airway patent, respirations nonlabored. Clear to auscultation bilaterally, no rales, rhonchi, wheezing. CARDIOVASCULAR: Regular rate and rhythm without murmurs rubs or gallops. ABDOMINAL: Suprapubic tenderness to palpation MUSCULOSKELETAL: Moves all extremities. Strength/ROM intact, No edema, No calf tenderness. Pelvic exam: Non friable cervix, thick vaginal discharge NEURO: Alert. Cranial nerves II through XII intact. Grossly intact SKIN: Warm, dry. Normal Color Course Vital Signs Vital signs: Vital Signs Temperature 97.9 F 08/31/23 09:27 Pulse Rate 79 08/31/23 09:27 Respiratory Rate 16 08/31/23 09:27 Blood Pressure 115/76 08/31/23 09:27 Pulse Oximetry 97 08/31/23 09:27 Oxygen Delivery Room Air 08/31/23 09:27 Temperature 97.9 F 08/31/23 09:27 Pulse Rate 79 08/31/23 09:27 Respiratory Rate 16 08/31/23 09:27 Blood Pressure 115/76 08/31/23 09:27 Pulse Oximetry 97 08/31/23 09:27 Oxygen Delivery Room Air 08/31/23 09:27 MDM - Back Pain/Injury MDM Narrative Medical decision making narrative: 33-year-old female presenting to the emergency department for evaluation of low back pain, vaginal discharge and concern for STD. Patient was negative for Trichomonas chlamydia and gonorrhea. Urine is still concerning for underlying urinary tract infection. Patient has multiple medication allergies patient was started on Levaquin in the emergency department we treated with Levaquin for home. Patient was encouraged to have close follow-up with her primary care physician for checkup. All questions concerns were addressed. Differential Diagnosis Differential diagnosis: Likely other (Gonorrhea, chlamydia, Trichomonas, bacterial vaginosis, yeast infection, urinary tract infection) Lab Data Attestation: I reviewed the patient's lab results. Labs: Lab Results 08/31/23 08/31/23 Range/Units 09:46 09:54 Urine Color Yellow (Yellow)
[2023-08-31] MEDS: FLUCONAZOLE 150 MG TABLET PO (10:01)
[2023-08-31 10:33] LABS: Appearance Urine Cloudy (Clear); Bacteria Urine Rare /hpf; Bilirubin Urine Negative (Negative); Blood Urine Negative (Negative); Budding Yeast Urine Present /hpf; Color Urine Yellow (Yellow); Glucose Urine UA Negative (Negative); Ketones Urine Negative (Negative); Leukocyte Esterase Ur 2+ LEU/UL (Negative); Nitrate Urine Negative (Negative); Non Pathogenic Casts 0-2; Protein Urine Negative (Negative); Specific Grav Ur 1.017 (1.001-1.035); Squamous Epithelial Cell Urine Moderate /hpf (Few); Urobilinogen Urine 0.2 mg/dL (<2.0); WBC Urine 21-50 /hpf (0-3); pH Urine 6.5 (5.0-9.0)
[2023-08-31 10:39] LABS: Add Urine Microscopic? YES
[2023-08-31 11:06] LABS: Trichomonas Vag PCR NOT DETECTED (NOT DETECTE)
[2023-08-31 11:30] LABS: Chlamydia trachomatis NOT DETECTED (NOT DETECTE); Neisseria gonorrhoeae PCR NOT DETECTED (NOT DETECTE)
[2023-08-31] MEDS: levoFLOXacin 500 MG TABLET PO (11:53)
== END 2023-08-31 11:56 | disposition home or self-care (01) ==
PROVIDERS: Emergency Provider Emergency Medicine
DX: N39.0 Urinary tract infection, site not specified (principal); B18.2 Chronic viral hepatitis C; F17.200 Nicotine dependence, unspecified, uncomplicated
CPT/HCPCS: 81001; 81025; 87070; 87077; 87086; 87088; 87186; 87491; 87591; 87661; 99284; A9270

== ENCOUNTER 2023-09-15 16:18 | Emergency (ER) | payer OTHER, SELFPAY ==
[2023-09-15 16:21] VITALS: BP 126/75; PULSE 78; RESP 18; TEMP 36.7; O2SAT 100
--- NOTE | 2023-09-15 19:25 | PC.NURSE ---
Patient called for room assignment, no answer and not seen in waiting room.
--- NOTE | 2023-09-15 19:57 | PC.NURSE ---
pt called for room, no answer
== END 2023-09-15 20:52 | disposition left against medical advice (07) ==
LOC: ANHED 20:20
DX: O26.891 Other specified pregnancy related conditions, first trimester (principal); R10.30 Lower abdominal pain, unspecified
CPT/HCPCS: 99199

== ENCOUNTER 2023-09-16 08:51 | Emergency (ER) | payer OTHER, SELFPAY ==
--- NOTE | 2023-09-16 08:53 | ED.PREGNANCY ---
HPI - General Chief complaint: Unspecified Stated complaint: Test Time Seen by Provider: 09/16/23 08:52 Source: patient Mode of arrival: ambulatory Limitations: no limitations History of Present Illness HPI Narrative: Teresa is a 33-year-old female patient presenting to the clinic today for a documented test. Last menstrual period was July 21, 2023. States she took a test last week and it was positive. Is having some abdomen cramping but denies any vaginal bleeding or discharge. Is reporting some urinary frequency and urgency as well. No fever, chills, or body aches. Related Data Home Medications Medication Instructions Recorded Confirmed No Home Medications 09/16/23 09/16/23 Allergies Allergy/AdvReac Type Severity Reaction Status Date / Time amoxicillin Allergy Intermediate Hives Verified 09/16/23 09:03 cephalexin Allergy Intermediate Hives / Verified 09/16/23 09:03 Red Face clindamycin Allergy Intermediate Hives Verified 09/16/23 09:03 Penicillins Allergy Intermediate Nausea and Verified 09/16/23 09:03 Vomiting Sulfa (Sulfonamide Allergy Intermediate Hives Verified 09/16/23 09:03 Antibiotics) sulfamethoxazole Allergy Intermediate Hives / Verified 09/16/23 09:03 Red Face trimethoprim Allergy Intermediate Hives / Verified 09/16/23 09:03 Red Face Review of Systems Review of Systems: Pertinent positives per HPI. Patient denies any fever, chills, rash, headache, visual changes, dizziness, cough, runny nose, sore throat, shortness of breath, chest pain, palpitations, nausea, vomiting, diarrhea, constipation, abdominal pain, or any urinary issues. [facility] Past Medical History Medical History Chronic active hepatitis C Surgical History Surgical History No pertinent past surgical history Social History Social History Smoking status: Current every day smoker Substance use: former Substance use type: heroin, amphetamines and methamphetamine Comments At the time of my signature, I reviewed and agree with the nursing past medical, surgical, social, and family history. There is no relevant family history pertinent to the patient complaint. Exam Narrative: General: Well-developed, well nourished, in no apparent distress. Head: Normocephalic, atraumatic. Cardio: Regular rate and rhythm, s1 and s2 normal, no murmur appreciated. Resp: Clear to auscultation bilaterally, no rhonchi, rales, wheezing or rubs. Abdomen: Soft, pliable, bowel sounds present in all quadrants, non-tender to palpation, no organomegly, no CVAT tenderness. : Deferred Course Course Emergency Course: Portions of this record may have been created with voice recognition software. Level of Care: Express Care Visit Vital Signs Vital signs: Vital signs reviewed MDM - OB/Uterine Contractions MDM Narrative Medical decision making narrative: At the time of visit patient is resting comfortably on the exam table. Patient appears to be nontoxic. Labs: UA dip is negative for any leukocytes, protein, or blood. Urine preg test was positive Plans: I suspect patient has abdominal cramping and early . Patient is denying any of vaginal bleeding. Urinalysis negative for any sign of UTI. Recommend follow-up with her OBGYN as scheduled. If symptoms worsen she needs to go to the ER to rule out possible miscarriage. Supportive measures were discussed with the patient and they voiced understanding discharge instructions and agrees to treatment plan. Return precautions reviewed Differential Diagnosis Differential diagnosis: Likely other (UTI in , , abdominal cramping in ) Discharge Plan Discharge Clinical Impression: Positive urine test, Abdominal cr
[2023-09-16 08:58] VITALS: BP 129/67; PULSE 74; RESP 18; TEMP 36.7; O2SAT 100
[2023-09-16 09:30] LABS: EDUAAPPEAR Clear; EDUABILI Negative; EDUABLOOD Negative; EDUACOLOR1 Yellow; EDUAGLUCOSE Negative; EDUAKETONE Negative; EDUALEUKO Negative; EDUANITRATE Negative; EDUAPH 5.5; EDUAPROTEIN Negative; EDUAUROBILI 0.2
== END 2023-09-16 09:25 | disposition home or self-care (01) ==
PROVIDERS: Emergency Provider Nurse Practitioner Family
DX: Z32.01 Encounter for pregnancy test, result positive (principal); O99.891 Other specified diseases and conditions complicating pregnancy; Z3A.00 Weeks of gestation of pregnancy not specified; R10.9 Unspecified abdominal pain; O99.330 Smoking (tobacco) complicating pregnancy, unspecified trimester
CPT/HCPCS: 81003; 81025; 99212; G0463

== ENCOUNTER 2024-01-13 14:17 | Emergency (ER) | payer OTHER, SELFPAY ==
[2024-01-13 14:21] VITALS: BP 125/65; PULSE 95; RESP 16; TEMP 36.2; O2SAT 100
--- NOTE | 2024-01-13 14:24 | ED.FEVER ---
HPI - Fever General Chief Complaint: Fever <Joanne Valentine PA-C - Last Filed: 01/13/24 17:55> Stated Complaint: fever, <Joanne Valentine PA-C - Last Filed: 01/13/24 17:55> Time Seen by Provider: 01/13/24 14:24 <Joanne Valentine PA-C - Last Filed: 01/13/24 17:55> Focused HPI: Patient is a 33 y/o female who presents to the ED with c/o fever. Patient reports she has not felt well over the past couple days, c/o mild cough and congestion, body aches. Noted to have a temperature to 99.3F today which prompted her to be seen. States several people have been sick around her. Took Tylenol prior to arrival. Temp here 97.2. Patient denies N/V, abd pain, vaginal bleeding, SOB. Patient and currently 4 months gestation[address] OB [address] Dr. Almodovar. Does report she was recently diagnosed with a UTI and yeast infection. Has had issues with BV in the past as well. GENERAL: Well-appearing, well-nourished, and in no acute distress. HEAD: Normocephalic, atraumatic. CHEST: Clear to auscultation. ?No respiratory distress. HEART: Regular rate and rhythm.? ABD: Uterus gravid above umbilicus, nontender. NEURO: ?Alert and oriented x3. Patient screened in triage and initial orders placed.? ?Additional care and disposition to be based upon?diagnostic testing and treatment. <Joanne Valentine PA-C - Last Filed: 01/13/24 17:55> Source: patient <Joanne Valentine PA-C - Last Filed: 01/13/24 17:55> Mode of arrival: ambulatory <Joanne Valentine PA-C - Last Filed: 01/13/24 17:55> Limitations: no limitations <DANN Vazquez Last Filed: 01/13/24 17:55> History of Present Illness HPI Narrative: I agree with the above HPI <Asif Hall MD - Last Filed: 01/13/24 18:21> Related Data Home Medications: Home Medications Medication Instructions Recorded Confirmed No Home Medications 09/16/23 09/16/23 <Joanne Valentine PA-C - Last Filed: 01/13/24 17:55> Allergies/Adverse Reactions: Allergies Allergy/AdvReac Type Severity Reaction Status Date / Time amoxicillin Allergy Intermediate Hives Verified 01/13/24 15:23 cephalexin Allergy Intermediate Hives / Verified 01/13/24 15:23 Red Face clindamycin Allergy Intermediate Hives Verified 01/13/24 15:23 Penicillins Allergy Intermediate Nausea and Verified 01/13/24 15:23 Vomiting Sulfa (Sulfonamide Allergy Intermediate Hives Verified 01/13/24 15:23 Antibiotics) sulfamethoxazole Allergy Intermediate Hives / Verified 01/13/24 15:23 Red Face trimethoprim Allergy Intermediate Hives / Verified 01/13/24 15:23 Red Face <Joanne Valentine PA-C - Last Filed: 01/13/24 17:55> Review of Systems Review of Systems: All systems reviewed & are unremarkable except as noted in HPI and below <Asif Hall MD - Last Filed: 01/13/24 18:21> PMFSH Past Medical History Medical History: Medical History Chronic active hepatitis C <Joanne Valentine PA-C - Last Filed: 01/13/24 17:55> Surgical History Surgical History: Surgical History No pertinent past surgical history <Joanne Valentine PA-C - Last Filed: 01/13/24 17:55> Social History Social History: Social History Smoking status: Current every day smoker Substance use: former Substance use type: heroin, amphetamines and methamphetamine <Joanne Valentine PA-C - Last Filed: 01/13/24 17:55> Exam Narrative: APPEARANCE: Well appearing, no pain, no distress, well-nourished. HEAD: normocephalic, atraumatic. EYES: PERRLA/EOMI, conjunctivae clear. NOSE: Normal no drainage EARS:TMS clear with good light reflex. THROAT: Pharynx clear, no exudate. NECK: Supple. No adenopathy, no masses. RESPIRATORY: Airway patent, respirations nonlabored. Clear to auscultation bilaterally, no rales, rhonchi, wheezing. CARDIOVASCULAR: Regular rate and rhythm without murmurs rubs or gallops. ABDOMINAL: Soft, nontender, nondistended, normal bowel sounds MUSCULOSKELETAL: Moves all extremities. Strength/ROM intact, No edema, No calf tenderness. NEURO: Alert. Cranial nerves II through XII intact. Good gait. Good coordination SKIN: Warm, dry. Normal Color <Asif Hall MD - Last Filed: 01/13/24 18:21> Course Vital Signs Vital signs: Vital Signs Temperature 97.2 F L 01/13/24 14:21 Pulse Rate 95 01/13/24 14:21 Respiratory Rate 16 01/13/24 14:21 Blood Pressure 125/65 01/13/24 14:21 Pulse Oximetry 100 01/13/24 14:21 Oxygen Delivery Room Air 01/13/24 14:21 Temperature 97.2 F L 01/13/24 14:21 Pulse Rate 69 01/13/24 16:19 Respiratory Rate 19 01/13/24 16:19 Blood Pressure 110/79 01/13/24 16:19 Pulse Oximetry 100 01/13/24 16:19 Oxygen Delivery Room Air 01/13/24 14:21 <Joanne Valentine PA-C - Last Filed: 01/13/24 17:55> Vital Signs Temperature 97.2 F L 01/13/24 14:21 Pulse Rate 95 01/13/24 14:21 Respiratory Rate 16 01/13/24 14:21 Blood Pressure 125/65 01/13/24 14:21 Pulse Oximetry 100 01/13/24 14:21 Oxygen Delivery Room Air 01/13/24 14:21 Temperature 97.2 F L 01/13/24 14:21 Pulse Rate 69 01/13/24 16:19 Respiratory Rate 19 01/13/24 16:19 Blood Pressure 110/79 01/13/24 16:19 Pulse Oximetry 100 01/13/24 16:19 Oxygen Delivery Room Air 01/13/24 14:21 <Asfi Hall MD - Last Filed: 01/13/24 18:21> MDM - Fever MDM Narrative Medical decision making narrative: MSE by JER in triage. <Joanne Valentine PA-C - Last Filed: 01/13/24 17:55> MSE by JER in triage. 33-year-old female presents to the emergency department for evaluation for upper respiratory symptoms. Patient reports she was offered antibiotics for a suspected urinary tract infection by OB and patient declined to take the antibiotics. Patient denies any urinary symptoms. Patient was offered antibiotics in the emergency department for her current suspected urinary tract infection and patient also declined. Urine culture was ordered. Patient was advised that there may be urine cultures results coming in the next 24-48 hours. <Asif Hall MD - Last Filed: 01/13/24 18:21> Differential Diagnosis Differential diagnosis: Likely other (Urinary tract infection, COVID, RSV, influenza, viral syndrome) <Asif Hall MD - Last Filed: 01/13/24 18:21> Lab Data Attestation: I reviewed the patient's lab results. <Asif Hall MD - Last Filed: 01/13/24 18:21> Labs: Lab Results 01/13/24 01/13/24 Range/Units 14:29 14:33 Urine Color Yellow (Yellow) Urine Appearance Clear (Clear) Urine pH 5.5 (5.0-9.0) Ur Specific [place] 1.021 (1.001-1.035) Urine Protein Negative (Negative) mg/dL Urine Glucose (UA) Negative (Negative) mg/dL Urine Ketones Negative (Negative) mg/dL Ur Blood (Man) Negative (Negative) Urine Nitrate Negative (Negative) Urine Bilirubin Negative (Negative) Urine Urobilinogen 0.2 (<2.0) mg/dL Leukocyte Esterase Rfl Trace H (Negative) CHANDLER/UL Urine RBC 0-2 (0-2) /hpf Urine WBC 11-20 H (0-3) /hpf Ur Squamous Epith Cells Moderate (Few) /hpf Urine Bacteria 1+ H /hpf Urine Casts 0-2 Influenza A (RT-PCR) Negative (Negative) Influenza B (RT-PCR) Negative (Negative) RSV (RT-PCR) Negative (Negative) SARS-CoV-2 RNA (RT-PCR) Negative (Negative) <Joanne Valentine PA-C - Last Filed: 01/13/24 17:55> Lab Results 01/13/24 01/13/24 Range/Units 14:29 14:33 Urine Color Yellow (Yellow) Urine Appearance Clear (Clear) Urine pH 5.5 (5.0-9.0) Ur Specific [place] 1.021 (1.001-1.035) Urine Protein Negative (Negative) mg/dL Urine Glucose (UA) Negative (Negative) mg/dL Urine Ketones Negative (Negative) mg/dL Ur Blood (Man) Negative (Negative) Urine Nitrate Negative (Negative) Urine Bilirubin Negative (Negative) Urine Urobilinogen 0.2 (<2.0) mg/dL Leukocyte Esterase Rfl Trace H (Negative) CHANDLER/UL Urine RBC 0-2 (0-2) /hpf Urine WBC 11-20 H (0-3) /hpf Ur Squamous Epith Cells Moderate (Few) /hpf Urine Bacteria 1+ H /hpf Urine Casts 0-2 Influenza A (RT-PCR) Negative (Negative) Influenza B (RT-PCR) Negative (Negative) RSV (RT-PCR) Negative (Negative) SARS-CoV-2 RNA (RT-PCR) Negative (Negative) <Asif Hall MD - Last Filed: 01/13/24 18:21> Discharge Plan Discharge Clinical Impression: Acute upper respiratory infection <Joanne Valentine PA-C - Last Filed: 01/13/24 17:55> Patient Disposition: Home, Self-Care <Joanne Valentine PA-C - Last Filed: 01/13/24 17:55> Condition: Stable <Joanne Valentine PA-C - Last Filed: 01/13/24 17:55> Instructions: Antibiotic Form, Viral Syndrome (ED) <Joanne Valentine PA-C - Last Filed: 01/13/24 17:55> Additional Instructions: You were offered antibiotics for a suspected urinary tract infection and you declined. A urine culture was ordered. Have close follow-up with your OB Gyne and primary care physician. Tylenol for fever and for body aches. Drink plenty of fluids. <Joanne Valentine PA-C - Last Filed: 01/13/24 17:55> Prescriptions: No Action No Home Medications <Joanne Valentine PA-C - Last Filed: 01/13/24 17:55> Follow-up/Referrals: [facility] [Non-Staff] - <Joanne Valentine PA-C - Last Filed: 01/13/24 17:55>
[2024-01-13 14:46] LABS: Add Urine Microscopic? YES; Appearance Urine Clear (Clear); Bacteria Urine 1+ /hpf; Bilirubin Urine Negative (Negative); Blood Urine Negative (Negative); Color Urine Yellow (Yellow); Glucose Urine UA Negative (Negative); Ketones Urine Negative (Negative); Leukocyte Esterase Ur Trace LEU/UL (Negative); Nitrate Urine Negative (Negative); Non Pathogenic Casts 0-2; Protein Urine Negative (Negative); RBC Urine 0-2 /hpf (0-2); Specific Grav Ur 1.021 (1.001-1.035); Squamous Epithelial Cell Urine Moderate /hpf (Few); Urobilinogen Urine 0.2 mg/dL (<2.0); pH Urine 5.5 (5.0-9.0)
[2024-01-13 15:09] LABS: Influenza A QL RT-PCR Negative (Negative); Influenza B QL RT-PCR Negative (Negative); RSV RNA, RT-PCR Negative (Negative); SARS-CoV-2 RNA PCR Negative (Negative)
[2024-01-13 15:19] VITALS: RESP 19; O2SAT 99
[2024-01-13 16:19] VITALS: BP 110/79; PULSE 69; RESP 19; O2SAT 100
== END 2024-01-13 16:21 | disposition home or self-care (01) ==
PROVIDERS: Physician Assistant; Emergency Provider Emergency Medicine
DX: O99.512 Diseases of the respiratory system complicating pregnancy, second trimester (principal); J06.9 Acute upper respiratory infection, unspecified; Z20.822 Contact with and (suspected) exposure to COVID-19
CPT/HCPCS: 81001; 87637; 99283

== ENCOUNTER 2024-05-05 17:05 | Inpatient (IN) | payer OTHER, SELFPAY ==
[2024-05-05] VITALS (140 sets, daily range): BP systolic 79–159; BP diastolic 31–98; PULSE 25–266; TEMP 36.8–37.6; O2SAT 67–100; BMI 28.8; BMI 26.8
--- NOTE | ~2024-05-05 | US_ITS ---
EXAMINATION: US OB limited w BPP DATE: 05/05/2024 16:44 INDICATION: Decelerations post external version. Third trimester. TECHNIQUE: Real-time pelvic ultrasound was performed. COMPARISON: None. FINDINGS: There is a single living fetus in vertex presentation. The placenta is fundal. heart rate is 1 46 beats per minute (bpm). The amniotic fluid index is 5.5 cm which is low (5th percentile is 7.3 cm) . Biophysical profile performed by the technologist: breathing (30 sec sustained breathing in 30 minutes): 0 out of 2 movement (3 gross body movements in 30 minutes): 2 out of 2 tone (one episode of kyqptle-urppjtpkf-nzkspib limb movement): 2 out of 2 Amniotic fluid pocket (2 cm): 2 out of 2 Total score: 6 out of 8 IMPRESSION: 1. Single living fetus in vertex presentation. 2. Biophysical profile 6 out of 8. 3. Oligohydramnios. Reviewed, dictated and finalized at location [facility]
[2024-05-05] MEDS: LACTATED RINGERS 1,000 ML 125 ML IV CONT ×2 (11:22→12:22)
--- OUTSIDE RECORDS SUMMARY | 2024-05-05 11:58 | XMS_ITS | Encounter Summary ---
Author Organization [facility] Address [address] [place] [id number] Care Team Providers Care Flat Bed Knitter Name Role Phone Cassie Mccann MD Primary Care Provider [phone] Encounter Details Date Type Department Care Team (Late st Contact Info) Description 01/05/2017 [place] [address] , Generic Conversion, Social History Tobacco Use Types Packs/Day Years Used Date Smoking Tobacco: Never Assessed Comments Unknown Sex and Gender Information Value Date Recorded Sex Assigned at Not on file Legal Sex Female 7:11 PM CDT Gender Identity Not on file Sexual Orientation Not on file documented as of this encounter Plan of Treatment Not on file documented as of this encounter Visit Diagnoses Not on filedocumented in this encounter Care Teams Flat Bed Knitter Relationship Specialty [place] [address] [place] [address] PCP - General 11/12/14 documented as of this encounter
--- OUTSIDE RECORDS SUMMARY | 2024-05-05 11:58 | XMS_ITS | Referral Summary ---
Author Organization [facility] Address [address] [place] [address] Care Team Providers Care Direct Marketing Executive Name Role Phone Cassie Mccann MD Primary Care Provider [phone] Source Comments [facility] Affiliates and Associated Physician Practices is amultiple site organization consisting of ambulatory clinics and hospital sitesin [place] and [place]. This disclosure is being madepursuant to the Care Everywhere program and may not contain all information available regarding this patient. Last updated 17.[facility] Allergies Active Allergy Reactions Criticality Noted Date Comments Ciprofloxacin Rash Low 09/08/2013 Medications * Be aware that medications may not be up to date on this document. Alwaysverify current medications with the patient. Medication Sig Dispensed Refills Start Date End Date Status levofloxacin (LEVAQUIN) 500 MG tablet Take 500 mg by mouth once daily. Active predniSONE (DELTASONE) 20 MG tablet Take 2 Tabs by mouth once daily. 10 Tab 0 09/08/2013 Active diphenhydrAMINE (BENADRYL) 25 MG capsule Take 1 Cap by mouth every 4 hours as needed for Itching. 20 Cap 0 09/08/2013 Active Social History Tobacco Use Types Packs/Day Years Used Date Smoking Tobacco: Every Day Cigarettes Smokeless Tobacco: Never Alcohol Use Standard Drinks/Week Comments No 0 (1 standard drink = 0.6 oz pur e alcohol) Sex and Gender Information Value Date Recorded Sex Assigned at Not on file Gender Identity Not on file Sexual Orientation Not on file Last Filed Vital Signs Vital Sign Reading Time Taken Comments Blood Pressure 142/88 09/08/2013 7:12 AM CDT Pulse 100 09/08/2013 7:12 AM CDT Temperature 36.7 C (98 F) 09/08/2013 7:12 AM CDT Respiratory Rate 16 09/08/2013 7:12 AM CDT Oxygen Saturation 100% 09/08/2013 7:12 AM CDT Inhaled Oxygen Concentration - - Weight 68 kg (150 lb) 09/08/2013 5:39 AM CDT Height 162.6 cm (5' 4 ) 09/08/2013 5:39 AM CDT Body Mass Index 25.75 09/08/2013 5:39 AM CDT Plan of Treatment Not on file Care Teams Direct Marketing Executive Relationship Specialty Start Date End Date Cassie Mccann MD [address] [facility] [address] [place] [address] PCP - General 05/02/18
--- OUTSIDE RECORDS SUMMARY | 2024-05-05 11:58 | XMS_ITS | Patient Health Summary ---
Author Organization [facility] Address [address] [place] [address] Care Team Providers Care Grain Operations Manager Name Role Phone Cassie Mccann MD Primary Care Provider [phone] Note from [facility],non-owned Affiliates and Associated Physician Practices is amultiple site organization consisting of ambulatory clinics and hospital sitesin [place], [place], [place] and [place]. This disclosure is being madepursuant to the Care Everywhere program and may not contain all information available regarding this patient. Last updated 17.[facility] Allergies * Ciprofloxacin(Rash) -Low Criticality Medications * Be aware that medications may not be up to date on this document. Alwaysverify current medications with the patient. * levofloxacin (LEVAQUIN) 500 MG tablet Take 500 mg by mouth once daily. * predniSONE (DELTASONE) 20 MG tablet(Started 09/08/2013) Take 2 Tabs by mouth once daily. * diphenhydrAMINE (BENADRYL) 25 MG capsule(Started 09/08/2013) Take 1 Cap by mouth every 4 hours as needed for Itching. Social History Tobacco Use Types Packs/Day Years [...] Mass Index 25.75 09/08/2013 5:39 AM CDT Procedures * CULTURE WOUND+GRAM STAIN(Performed 02/27/2014) * CULTURE BLOOD(Performed 08/24/2013) * CULTURE BLOOD(Performed 08/24/2013) * SONOGRAM - COMPLETE(Performed 04/25/2011) Results * (ABNORMAL) CULTURE WOUND+GRAM STAIN (02/27/2014 12:56 PM OVEN WORKER) Culture Wound STAPHYLOCOCCUS AUREUS(A) [facility] Comment: Moderate Growth Staphylococcus Aureus FURTHER IDENTIFIED MULTI-DRUG RESISTANT ORGANISM. PATIENT MUST BE PLACED ON CONTACT ISOLATION PRECAUTIONS. Culture Wound MULTI-DRUG RESISTANT ORGANISM(A) [facility] Comment:Multi-Drug Resistant Organism Gram Stain Many Gram positive cocci in pairs and clusters [facility] Wound 02/27/2014 12:5 6 PM OVEN WORKER 02/27/2014 8:53 PM OVEN WORKER Narrative [facility] - 03/02/2014 11:49 AM OVEN WORKER Aretha#[id number] Donnie Loc//Bed: ED// Source: facial abscess Gram Stains are routinely screened for the presence of Polymorphonuclear Cells. Organism Antibiotic Method Susceptibility Staphylococcus aureus Clindamycin SUSCEPTIBILITY 0.25: Sensitive Staphylococcus aureus Doxycycline SUSCEPTIBILITY <=0.5: Sensitive Staphylococcus aureus Erythromycin SUSCEPTIBILITY >=8: Resistant Staphylococcus aureus Gentamicin SUSCEPTIBILITY <=0.5: Sensitive Staphylococcus aureus Levofloxacin SUSCEPTIBILITY 4: Resistant Staphylococcus aureus Oxacillin SUSCEPTIBILITY >=4: Resistant Comment: Oxacillin susceptibility predicts susceptibility to beta-lactam/beta-lactamase inhibitor combinations, cephalosporins, and carbapenems. Oxacillin resistance predicts resistance to all penicillins, beta-lactam/beta-lactamase inhibitor combinations, cephalosporins, and carbapenems with the exception of cephalosporins with anti-MRSA activity. Staphylococcus aureus Trimethoprim-sulfamethoxazole MATIAS SCEPTIBILITY <=10: Sensitive Staphylococcus aureus Vancomycin SUSCEPTIBILITY 1: Sensitive Historical Provider LAB - MICROBIOLOG Y ORDERABLES [address] [phone] * CULTURE BLOOD (08/24/2013 10:25 PM CDT) Only the most recent of2 resultswithin the time period is included. Culture Blood No Growth at 5 days [facility] Blood specimen (specimen) BLOOD SPECIMEN / Unknown 08/24/2013 10:25 PM CDT 08/25/2013 9:18 AM CDT Narrative [facility] - 08/30/2013 9:30 AM CDT DonnieSpecimen#[id number] Donnie Loc/Rm/Bed: ED// Historical Provider LAB - MICROBIOLOG Y ORDERABLES Performing Organization Address City/[facility]/ZIP Co de Phone Number [address] [phone] * SONOGRAM - COMPLETE (04/25/2011 11:29 AM OVEN WORKER) Anatomical Region Laterality Modality Other 04/25/2011 11:2 9 AM OVEN WORKER Narrative 04/25/2011 6:37 PM OVEN WORKER [facility] PHONE: FAX: Pat. Name: TERESA FLORES. No: [id number] Study Date: 04/25/2011 11:29am , Age: 06 1990, 20 Pregnancies: 2, Para 0, Ab 1 LMP: 10/16/2010 GA by LMP: 27w2d GA by US: 27w0d GA Selected: 27w2d (LMP) MARCEL: 07/23/2011 Referring MD: HODAN COHEN MD Broadcast Checker: Shila Humphrey RDMS Hist/Ind: Substance Abuse Positive Quad MEASUREMENTS & AGE GROWTH EVALUATION Measurement GA Range Srce %for GA Ratios ----- ---- ------- BPD 6.7 cm 27w1d ([id number]) Hadl BPD 47% FL/BPD 0.75 (0.71 - 0.87) HC 24.7 cm 26w6d (79h5k-84l6x) Hadl HC 39% FL/AC 0.22 (0.20 - 0.24) AC 22.5 cm 26w6d (97g7p-50s1v) Hadl AC 41% HC/AC 1.10 (1.00 - 1.18) FL 5.0 cm 27w0d (04d2w-36m3b) Hadl FL 44% CI 0.76 (0.70 - 0.86) HL 4.8 cm 28w2d (54b2x-43h1o) Dhiraj HL 66% GA for sonogram 27w0d (58q5k-78y4b) Weight Estimate: based on (BPD,HC,AC,FL) Avg Weight: 1004 gm (857-1150) Hadloc : 2lbs, 3oz Normal: 1038 gm (693-1527) Brenne Wt% 46% for 27.3 wks Heart Rate: 141 bpm Amniotic Fluid Index: 14.4cm (09.5-22.7) CLINICAL SUMMARY Study Number: 1 A coulter fetus is identified in cephalic presentation. The measurements today are consistent with appropriate growth compared to previous examination. The MARCEL selected is based on her LMP and a prior ultrasound examination. The amniotic fluid volume is within normal limits. The placenta is posterior, Grade 1. No major malformations are seen. The patient was advised that ultrasound does not allow detection of all structural or chromosomal abnormalities. Quad Screen could not be used due to wrong dates. IMPRESSION: Coulter IUP at 27w2d Normal amniotic fluid volume. Appropriate growth. No major malformations are seen today within the limitations of ultrasound. RECOMMEND: Follow up ultrasound as clinically indicated. Thank you for allowing us the opportunity to care for your patient. Conrado Monson MD <Electronic Signature> 04/25/2011 06:37pm Ordering Provider Unlisted MD JACK PARIKH [facility] Care Teams Grain Operations Manager Relationship Specialty Start Date End Date Cassie Mccann MD [address] [address] PCP - General 05/02/18
--- OUTSIDE RECORDS SUMMARY | 2024-05-05 11:58 | XMS_ITS | Clinical Summary ---
Author Organization [facility] Address [address] [place] [address] Phone Care Team Providers Care Clip Coater Name Role Phone Christiano Holden MD Primary Care Provider [phone] Allergies Active Allergy Reactions Criticality Noted Date Comments Amoxicillin Hives High 01/12/2018 All cillins Ciprofloxacin Rash Low 09/08/2013 Clindamycin Hives High 01/12/2018 Cephalexin Hives High 01/12/2018 Sulfa Antibiotics Hives High 01/12/2018 Sulfamethoxazole-Trimethoprim Hives Medium 2021 Medications escitalopram (LEXAPRO) 10 MG Tablet 03/13/2018 Active VIVITROL 380 MG Recon Suspension 04/10/2018 Ac tive medroxyPROGESTER one (DEPO-PROVERA) 150 MG/ML Suspension 1 mL. 12/30/2019 Active naloxone HCl (Narcan) 4 MG/0.1ML Liquid 1 Julian by Nasal route. 11/12/2021 Active Simethicone (GAS-X PO) Take by mouth. Active Active Problems No known active problems Social History Tobacco Use Types Packs/Day Years Used Date Smoking Tobacco: Every Day Cigarettes 0.8 10 Smokeless Tobacco: Never Tobacco Cessation:Ready to Q uit: Not Asked; Counseling Given: Not Answered Alcohol Use Standard Drinks/Week Comments No 0 (1 standard drink = 0.6 oz pur e alcohol) Comments Unknown Sex and Gender Information Value Date Recorded Sex Assigned at Not on file Legal Sex Female 10:23 PM CDT Gender Identity Not on file Sexual Orientation Not on file Occupation Industry Job Start Date Job End Date unemployed Not on file Not on file Not on file Last Filed Vital Signs Vital Sign Reading Time Taken Comments Blood Pressure 131/86 06/18/2022 9:44 AM CDT Pulse 86 06/18/2022 9:44 AM CDT Temperature 37.3 C (99.2 F) 06/18/2022 9:44 AM CDT Respiratory Rate 18 06/18/2022 9:44 AM CDT Oxygen Saturation 98% 06/18/2022 9:44 AM CDT Inhaled Oxygen Concentration - - Weight 68 kg (150 lb) 06/18/2022 9:44 AM CDT Height 162.6 cm (5' 4 ) 06/18/2022 9:44 AM CDT Body Mass Index 25.75 06/18/2022 9:44 AM CDT Plan of Treatment Health Maintenance Due Date Last Done Comments TdaP Immunization 1990 Hepatitis B Immunization (1 of 3 - 19+ 3-dose series) 08/13/2007 Pneumococcal Immunization Co mbined (1 of 2 - PCV) 08/13/2007 Pap Smear 2009 Cervical Cancer Screening (CCS) 2018 HPV/Cotest 2018 Influenza Immunization (#1) 2023 SARS-COV-2 Immunization ( season) 2023 08/09/2020 Respiratory Syncytial Virus (RSV) Immunization (Adult) (1 - 1-dose 75+ series) 08/13/2063 Meningococcal Immunization (ACWY) Aged Out No longer eligible based on patient's age to complete this topic Rotavirus Immunization Aged Out No lo nger eligible based on patient's age to complete this topic Insurance MEDICAID [employer] [address] [id number] Care Teams Clip Coater Relationship Specialty Start Date End Date Christiano Holden MD [address] [address] PCP - General Family Medicine 06/02/22
--- OUTSIDE RECORDS SUMMARY | 2024-05-05 11:58 | XMS_ITS | Patient Health Record ---
Author Organization [facility] Address [address] [place] [address] Care Team Providers Care Mycology Teacher Name Role Phone Claus Alvarez Primary Care Provider [phone] Jonh Foote Unavailable [phone] [facility], Adult MARU Unavailabl e [phone] Negro Deluca Unavailable Allergies Allergen (clinical drug ingredient) Drug/Non Drug Allergy documented on EMR Reaction Allergy Type Onset Date Status clindamycin clindamycin (uncoded) hives Allergy Active amoxicillin Amoxicillin hives Drug Allergy Act jasmyne sulfamethoxazole / trimethoprim Bactrim hives Drug Allergy Active Sulfacet-R hives Drug Allergy Active PENICILLIN (uncoded) hives Allergy Active Reason For Referral No Information Medications Medication SIG (Take, Route, Frequency, Duration) Notes Start Date End Date Status Simethicone 80 MG two tablets after meals and at bedtime Orally Four times a day 11/16/2022 Active Librium Not-Taking carBAMazepine 200 MG 1 tablet Orally Twi ce a day Not-Taking Lexapro 10 MG 1 tablet Orally Once a day for 30 days Active Multivitamin - 1 tablet Orally Once a day Not-Taking Propranolol HCl 20 MG 1 tablet Orally On ce a day for 30 days Active chlordiazePOXIDE HCl 10 MG 1 capsule twi ce daily for 4 days, q AM for 4 days, then stop. Orally as directed for 8 days 11/16/2022 Not-Taking Thiamine HCl 100 MG 1 tablet Orally Once a day- Taken for 3 days ONLY, while on CRU Not-Taking Folic Acid 1 MG 1 tablet Orally Once a day Not-Taking Naproxen Not-Taking Social History Tobacco Use: Social History Observation Description Date Details (start date - stop date) Current Smoker NA - NA Sex Assigned At : Social History Observation Description Sex Assigned At Female Dont use, Tobacco Use/Smoking Question Answer Notes Are you a current every day smoker Additional Findings: Tobacco User Light cigarett e smoker ((1-9 cigs/day) Alcohol Screen (Audit-C) Question Answer Notes Did you have a drink containing alcohol in the p ast year? No Points 0 Interpretation Negative PRAPARE Question Answer Notes Date Completed/Updated: 01/15/2024 What is your current housing situation? I do not have housing (staying with others, in a hotel, in a group home, living outside on the street, on a beach, or in a park) Are you worried about losing your housing? I cho ose not to answer this question What is the highest level of school that you have finished? 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 Check all that apply I choose not to answer this question Has lack of transportation k ept you from medical appointments, meetings, work or from getting things needed for daily living? No How often do you see or talk to people that you care about and feel close to? (For example: talking to friends on the phone, visiting friends or family, going to hindu or club meetings) More than 5 times a week How stressed are you? Stress is when someone feels tense, nervous, anxious, or can\t sleep at night because their mind is troubled Somewhat In the past year have you sp ent more than 2 nights in a row in a senior living, fpc, snf center, or juvenile correctional facility? No Are you a refugee? No What country are you from? [place] Do you feel physically and e motionally safe where you currently live? Unsure In the past year, have you b een afraid of your partner or ex-partner? No PRAPARE Score: 4 Section Notes: Reviewed PDMP Reviewed PDMP Problems Problem Type SNOMED Code ICD Code Onset Dates Problem Status W/U Status Risk Notes Problem Tobacco user (276650101) Nicotine dependence, unspecified, uncomplicated (F17.200) Active confirmed Problem Depression (916423552) Depression (F32.9) Active confirmed Problem Mood disorder (74642038) Mood disorder (F39) 04/26/19 Active confirmed Problem 37417197 Anxiety (F41.9) Active confirmed Problem Hepatitis C (32782438) Hepatitis C (B19.20) 06/12/19 Active confirmed Problem Psychoactive substance dependence (9911048) Chemical dependency (F19.20) Active confirmed Problem Disorder caused by alcohol (disorder) (884916962) Alcohol use disorder (F10.99) Active confirmed Problem 44127927 Depression, unspecified depression type (F32.9) 06/12/19 Active confirmed Problem Surveillance of contraception (723323519) control (Z30.9) Active confirmed Problem Mental disorder caused by drug (889692156) Oth stimulant use, 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20) Active confirmed Problem 42256665 Non-seasonal allergic rhinitis, unspecified trigger (J30.89) Active confirmed Problem Cocaine dependence (13416617) Cocaine use disorder, severe, dependence (F14.20) Active confirmed Problem Mental disorder caused by drug (205471546) Opioid use disorder (F11.99) Active confirmed Problem Alcohol related disorder (F10.99) Active confirmed Problem Indigestion (737565870) Indigestion (K30) Active confirmed Encounters Encounter Location Date Provider Diagnosis [address] [address] 01/16/2024 Negro Deluca [address] [place] [address] 01/16/2024 Negro Deluca [address] [place] [address] 01/21/2024 Negro Deluca Plan Of Treatment Pending Test Test Name Order Date Test, Urine 04/04/2020 RPR, Rfx Qn RPR/Confirm TP-PA 04/04/2020 Hepatitis B Virus (Profile ) 1 Chlamydia/GC, DNA Probe 04/04/2020 Hepatitis C antibody 04/04/2020 Insurance Providers Payer Name Payer Address Payer Phone Subscriber Number Group Number Insured Name Patient Relationship to Insured Coverage Start Date Coverage End Date [employer] [facility] [employer] [facility] Attn Claims Department [address] [place] [phone] [id number] Teresa Flores Self - patient is the insured 1 [employer] Attn Claims Department [address] [place] [phone] [id number] Teresa Flores Self - patient is the insured 1 [employer] Attn Claims Department [address] [address] [id number] Teresa Flores Self - patient is the insured 1 [email or web address] Attn Claims Department [address] [address] [id number] Teresa Flores Self - patient is the insured 1 Medications Administered Medication Instructions Date of Administration Dosage Notes Medroxyprogesterone 08/01/2018 150 mg Tick Eradicator: Nelda Negative test on file. Pt tolerated the injection well. Verbalized understanding of need to use back up form of contraception for the next month. Medroxyprogesterone 01/20/2019 150 mg Tick Eradicator: Nelda Negative test. Pt tolerated well. Medroxyprogesterone 04/28/2019 150 mg Jay Lutz. Preg test negative. Pt tolerated well. Voiced no questions or concerns at present time. Medroxyprogesterone 04/04/2020 1 mL Lot#[id number]. Exp:03/2022. Tick Eradicator: ADENTS HTI. Patient tolerated well. medroxyPROGESTERone Acetate 09/26/2020 150 mg Patient tolerate d injection well. Patient voiced no complaints and had no questions or concerns. medroxyPROGESTERone Acetate 12/27/2020 150 mg Patient tolerate d injection well. Patient voiced no concerns and had no questions at time of visit today. Vivitrol 02/13/2018 380 mg Tick Eradicator Alkermes. Pt tolerated well. Voiced no questions or concerns at present time. Vivitrol 03/13/2018 380 mg Tick Eradicator Alkermes. Pt tolerated well. Voiced no questions or concerns at present time. Vivitrol 04/10/2018 380 mg Exp Jun 2020 manufact by Moo pt melanie well. Vivitrol 05/08/2018 380 mg Exp Jun 2020 Manufact by [employer] Pt melanie well. Vivitrol 06/05/2018 380 mg Exp July 2020 Manufact by [employer] pt melanie well. Vivitrol 07/03/2018 380 mg Exp July 2020 Manufact by [employer] Pt melanie well. Vivitrol 08/01/2018 380 mg Pt tolerated t he injection well. She had no questions or concerns. Vivitrol 09/09/2018 380 mg Tick Eradicator: Alkermes Pt tolerated well. Denies questions and concerns at this time. Vivitrol 10/16/2018 380 mg Exp Oct 2020 Manufact by [employer] Pt melanie well. Vivitrol 01/20/2019 380 mg Tick Eradicator: Alkermes Pt toelrated well. She denies questions or concerns Vivitrol 03/03/2019 380 mg Tick Eradicator: Alkermes. Pt tolerated the injection well and expresses no concerns Vivitrol 04/28/2019 380 mg Tick Eradicator Alkermes. Pt tolerated well. Voiced no questions or concerns at present time. Vivitrol 06/12/2019 380 mg Tick Eradicator Alkermes. Pt tolerated well. Voiced no questions or concerns at present time. Vivitrol 07/10/2019 380 mg Patient tolera anival well. Vivitrol 12/29/2019 380 mg Tick Eradicator Alkermes. Pt tolerated well. Voiced no questions or concerns at present time. Vivitrol 01/26/2020 380 mg Tick Eradicator Alkermes. Pt tolerated well. Voiced mno questions or concerns at present time. Medical (General) History Medical History History ICD Code Opioid use disorder, severe, in controll ed environment Bipolar affective disorder, remission st atus unspecified Anxiety Opioid use disorder Tobacco dependence Chemical dependency Hepatitis C Surgical History Surgery Date(Month/Year) Hospitalization History Reason Date(Month/Year) Suicidal ideations 02/2018
--- OUTSIDE RECORDS SUMMARY | 2024-05-05 11:58 | XMS_ITS | Clinical Summary ---
Author Organization [facility] Address [address] [place] [address] Care Team Providers Care Information Security Manager Name Role Phone Cassie Mccann MD Primary Care Provider [phone] Source Comments [facility] hospital Affiliates and Associated Physician Practices is amultiple site organization consisting of ambulatory clinics and hospital sitesin [place], [place], [place] and [place]. This disclosure is being madepursuant to the Care Everywhere program and may not contain all information available regarding this patient. Last updated 17.[facility] Allergies Active Allergy Reactions Criticality Noted Date [...] 09/08/2013 5:39 AM CDT Plan of Treatment Health Maintenance Due Date Last Done Comments PAP SMEAR 1988 HIV SCREENING 08/13/2003 DTAP/TDAP/TD VACCINES (1 - Tdap) 08/13/2007 HEPATITIS B VACCINE (1 of 3 - 19+ 3-dose series) 08/13/2007 PNEUMOCOCCAL VACCINE (1 of 2 - PCV) 08/13/2007 COVID-19 VACCINE (1 - 2023-2 5 season) 2023 INFLUENZA VACCINE (#1) 2023 DEPRESSION SCREENING 03/04/2024 ZOSTER VACCINE (1 of 2) 2038 HEPATITIS C SCREENING Completed 08/19/2015 HIB VACCINE Aged Out No longer eligi ble based on patient's age to complete this topic HPV VACCINE Aged Out No longer eligi ble based on patient's age to complete this topic MENINGOCOCCAL (Group B) VACCINE Aged Out No longer eligible based on patient's age to complete this topic MENINGOCOCCAL VACCINE Aged Out No shivani erendira eligible based on patient's age to complete this topic Care Teams Information Security Manager Relationship Specialty Start Date End Date Cassie Mccann MD [address] [facility] [address] [place] [address] PCP - General 05/02/18
--- OUTSIDE RECORDS SUMMARY | 2024-05-05 11:58 | XMS_ITS | Referral Summary ---
Author Organization [facility] Address [address] [place] [address] Care Team Providers Care Set Decorator Name Role Phone Christiano Holden MD Primary Care Provider [phone] Allergies Active Allergy Reactions Criticality Noted Date Comments Amoxicillin Hives Medium 11/12/2021 Sulfamethoxazole-Trimethoprim Hives Medium 2021 Clindamycin Hives Medium 11/12/2021 Penicillin G Hives Medium 11/12/2021 Medications ondansetron (ZOFRAN) 4 mg tablet Take 1 tablet (4 mg total) by mouth every 6 (six) hours 10 tablet 2 Active naloxone (NARCAN) 4 mg/actuation spray,non-aeros ol Administer 1 spray into affected nostril(s) as needed for opioid reversal or respiratory depression Call 911. Administer a single spray in one nostril. Repeat every 3 minutes as needed if no or minimal response. 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 Gender Identity Not on file Sexual Orientation Not on file Last Filed Vital Signs Vital Sign Reading Time Taken Comments Blood Pressure 131/69 11/12/2021 1:00 PM CDT Pulse 69 11/12/2021 1:45 PM CDT Temperature 36.5 C (97.7 F) 11/12/2021 1:03 PM CDT Respiratory Rate 19 11/12/2021 1:45 PM CDT Oxygen Saturation 93% 11/12/2021 1:45 PM CDT Inhaled Oxygen Concentration - - Weight 75 kg (165 lb 5.5 oz) 11/12/2021 12:20 PM CDT Height 162.6 cm (5' 4 ) 11/12/2021 12:20 PM CDT Body Mass Index 28.38 11/12/2021 12:20 PM CDT Plan of Treatment Not on file Insurance Care Teams Set Decorator Relationship Specialty Start Date End Date Christiano Holden MD PCP - General Emergency Medicine 03/15/21
--- OUTSIDE RECORDS SUMMARY | 2024-05-05 11:58 | XMS_ITS | Clinical Summary ---
Author Organization [facility] [place] Address [address] [place] [address] Care Team Providers Care Preparation Supervisor Name Role Phone Christiano Holden MD Primary Care Provider [phone] Allergies Active Allergy Reactions Criticality Noted Date [...] or minimal response. 1 each 2 Active Medical History Medical History Date Comments Drug abuse (CMS/HCC) (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 Gender Identity Not on file Sexual Orientation Not on file Obstetrics History Last Filed Vital Signs Vital Sign Reading [...] 11/12/2021 12:20 PM CDT Plan of Treatment Health Maintenance Due Date Last Done Comments Cervical Cancer Screening 1988 Depression Screening 1988 Hepatitis C Screening 1988 DTaP/Tdap/Td Vaccine (1 - Tdap) 08/13/1999 Varicella Vaccines (1 of 2 - 13+ 2-dose series) 2001 Hepatitis B Screening 2006 Regular Well Visit/Exam 18-64 2006 Influenza Vaccine (#1) 2023 HPV Vaccines Aged Out No longer eligi ble based on patient's age to complete this topic Pneumococcal vaccine <65 Aged Out No longer eligible based on patient's age to complete this topic Insurance Care Teams Preparation Supervisor Relationship Specialty Start Date End Date Christiano Holden MD PCP - General Emergency Medicine 03/15/21
--- OUTSIDE RECORDS SUMMARY | 2024-05-05 11:58 | XMS_ITS | Clinical Summary ---
Author Organization [facility] Address [address] [place] [address] Care Team Providers Care Day Care Home Mother Name Role Phone Cassie Mccann MD Primary Care Provider Social History Tobacco Use Types Packs/Day Years Used Date Smoking Tobacco: Never Assessed Comments Unknown Sex and Gender Information Value Date Recorded Sex Assigned at Not on file Legal Sex Female 7:11 PM CDT Gender Identity Not on file Sexual Orientation Not on file Plan of Treatment Health Maintenance Due Date Last Done Comments Cervical Cancer Screening Pa p Smear (Age 30 to 64) Every 3 Years 1988 Annual Physical 08/13/1991 Hepatitis C 2006 DTaP, Tdap and Td Vaccines ( 1 - Tdap) 08/13/2007 Hepatitis B Vaccines (1 of 3 - 19+ 3-dose series) 08/13/2007 Cervical Cancer Screening Pa p with HPV Testing (Age 30 to 64) Every 5 Years 2018 Cervical Cancer Screening with HPV 2018 COVID-19 Vaccine (2023-2 5 season) 2023 Influenza Adult (#1) 2023 HPV Vaccines Aged Out No longer eligi ble based on patient's age to complete this topic Meningococcal B Vaccine Aged Out No l onger eligible based on patient's age to complete this topic Meningococcal Vaccine Aged Out No shivani erendira eligible based on patient's age to complete this topic Pneumococcal Vaccine: Pediat rics (0 to 5 Years) and At-Risk Patients (6 to 64 Years) Aged Out No longer eligible b ased on patient's age to complete this topic RSV Immunizations Under 20 Months Aged Out No longer eligible based on patient's age to complete this topic Advance Directives Documents on File Type Date Recorded Patient Wheel 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
--- OUTSIDE RECORDS SUMMARY | 2024-05-05 11:58 | XMS_ITS | CONTINUITY OF CARE DOCUMENT ---
Author Name allison cooper Address Unknown Organization [facility] Address [address] [place] [address] [address] [place] [address] Phone [phone] Care Team Providers Care Forensics Team Director Name Role Phone Carrie Reyes MD Unavailable [phone] Carrie Reyes MD Unavailable [phone] INSURANCE PROVIDERS Payer name Policy type / Coverage type Edward red libertarian [place] MEDICAID (2) Medicaid [id number]
[2024-05-05 12:21] LABS: Basophils Percent Auto 0.2 % (0.2-1.2); Eosinophils Absolute Auto 0.1 K/mm3 (0-0.3); Eosinophils Percent Auto 0.7 % (0-4.4); Hematocrit 31.9 % (37.0-47.0); Hemoglobin 10.3 g/dL (12.0-15.0); Immature Granulocyte Absolute 0.05 K/mm3 (0.00-0.031); Immature Granulocyte Percent A 0.5 % (0-0.5); Lymphocytes Absolute Auto 1.33 K/mm3 (0.9-3.2); Lymphocytes Percent Auto 13.9 % (18.3-44.2); Mean Corpuscular HGB Conc 32.3 g/dl (32-36); Mean Corpuscular Hemoglobin 27.1 pg (26-34); Mean Corpuscular Volume 83.9 fl (80-100); Mean Platelet Volume 10.1 fl (7.4-10.4); Monocytes Absolute Auto 0.6 K/mm3 (0.1-0.6); Monocytes Percent Auto 6.4 % (2.6-8.5); Neutrophils Absolute Auto 7.5 K/mm3 (1.3-6.7); Neutrophils Percent Auto 78.3 % (45.5-73.1); Platelet Count Result 288 k/mm3 (150-375); Red Cell Distribution Width 12.9 % (11.5-14.5); White Blood Count 9.5 K/mm3 (4.5-10.0)
--- NOTE | 2024-05-05 12:24 | P.PNAN_ITS ---
Anes - Initial Pre Proc Eval Date/Time: 05/05/24 12:24 Surgeon: Pravin Almodovar MD Pre Op Diagnosis: Version/External Patient Data Age: 33 Gender: F Height: 1.63 m Weight: 76 kg Last Vital Signs Pulse 79 05/05/24 12:15 BP 102/72 05/05/24 12:15 Allergies Allergy/AdvReac Type Severity Reaction Status Date / Time amoxicillin Allergy Intermediate Hives Verified 01/13/24 15:23 cephalexin Allergy Intermediate Hives / Verified 01/13/24 15:23 Red Face clindamycin Allergy Intermediate Hives Verified 01/13/24 15:23 Sulfa (Sulfonamide Allergy Intermediate Hives Verified 01/13/24 15:23 Antibiotics) sulfamethoxazole Allergy Intermediate Hives / Verified 01/13/24 15:23 Red Face trimethoprim Allergy Intermediate Hives / Verified 01/13/24 15:23 Red Face Penicillins AdvReac Intermediate Nausea and Verified 05/05/24 10:44 Vomiting Home Medications ?Medication ?Instructions ?Recorded ?Confirmed ?Type No Home Medications 09/16/23 09/16/23 History Laboratory Tests 05/05/24 12:15 WBC 9.5 K/mm3 (4.5-10.0) RBC 3.80 L M/mm3 (4.2-5.4) Hgb 10.3 L g/dL (12.0-15.0) Hct 31.9 L % (37.0-47.0) MCV 83.9 fl (80-100) MCH 27.1 pg (26-34) MCHC 32.3 g/dl (32-36) RDW 12.9 % (11.5-14.5) Plt Count 288 k/mm3 (150-375) MPV 10.1 fl (7.4-10.4) Immature Gran % (Auto) 0.5 % (0-0.5) Neut % (Auto) 78.3 H % (45.5-73.1) Lymph % (Auto) 13.9 L % (18.3-44.2) Barron % (Auto) 6.4 % (2.6-8.5) Eos % (Auto) 0.7 % (0-4.4) Baso % (Auto) 0.2 % (0.2-1.2) Lymph # (Auto) 1.33 K/mm3 (0.9-3.2) Barron # (Auto) 0.6 K/mm3 (0.1-0.6) Eos # (Auto) 0.1 K/mm3 (0-0.3) Baso # (Auto) 0.0 K/mm3 (0.0-0.1) Abs Immat Gran (auto) 0.05 H K/mm3 (0.00-0.031) Absolute Neuts (auto) 7.5 H K/mm3 (1.3-6.7) Absolute Nucleated RBC 0.000 K/mm3 (0.0-0.012) Nucleated RBC % 0.0 % (0.0-0.2) Patient hx anesthesia problems: none Family hx anesthesia problems: none Results Review: All pre-operative results and documents have been reviewed as part of the pre- operative evaluation. [facility] Past Medical History Medical History Chronic active hepatitis C Surgical History Surgical History No pertinent past surgical history Social History Social History Smoking status: Current every day smoker Substance use: former Substance use type: heroin, amphetamines and methamphetamine Anes - Eval Final PreProcedure Day of Procedure 05/05/24 12:24 Patient weight: normal and overweight Lungs: normal air movement Neurological: alert and oriented ASA classification: III Emergent: no Anesthetic plan: proceed Anesthesia type and monitoring: regional epidural Other findings: Plt 288 today. Pt chr Hep C positive. Results Review: All pre-operative results and documents have been reviewed as part of the pre- operative evaluation. Informed Consent: The patient's anesthetic plan and its attendant risks and benefits were discussed with the patient/family/POA. Questions were solicited and answers provided to the satisfaction of the patient/family/POA. Pt presents w breech presentation for epidural and attempted version by Dr Almodovar. Plan for epidural and to be dosed for Dr Almodovar to attempt version in L and D.
[2024-05-05] MEDS: TERBUTALINE SULFATE 1 MG/ML VIAL 0.25 MG SUB-Q (13:13)
--- NOTE | 2024-05-05 13:29 | W.PM.PROC2 ---
Procedure Note - Detailed Date of Procedure 05/05/24 Pre-op Diagnosis Version/External Post-op Diagnosis Same Procedure Performed External cephalic version Surgeon Pravin Almodovar MD Anesthesia Epidural Indications Breech presentation Findings Ang breech, left lateral Description of Procedure Manipulating the baby in a backward somersault failed, forward roll then was successful. Using pressure on the occiput of the of the infant's head and pushing upward on the breech the infant was rotated down and held in place using manual manipulation and ultrasound guidance. Estimated Blood Loss 0 Pathology None sent Complications No immediate complications Disposition Same day
[2024-05-05] MEDS: PHENYLEPHRINE 1,000 MCG/10 ML SYRINGE 100 MCG IV PUSH ×3 (13:38→14:06)
--- NOTE | 2024-05-05 14:04 | ECG_ITS ---
Test Date: 2024-05-05 14:28:51 Measurements Intervals [place] Rate: 96 P: 55 [place]: 114 QRS: 68 QRSD: 88 T: 52 QT: 345 QTc: 436 Interpretive Statements SINUS RHYTHM WITH SHORT [place] INTERVAL No previous ECG available for comparison Electronically Signed On 05-06-2024 11:12:25 TOPOLOGY TEACHER by Satnam Ward M.D.
[2024-05-05] MEDS: hydrOXYzine HCL 10 MG TABLET PO (17:17)
--- NOTE | 2024-05-05 18:25 | OBADM ---
This patient, Teresa Flores, admitted to the OB room OB Post 116 for observation. Patient/family oriented to hospital policies and general routines including ID bracelet, bed and alarms, visiting hours, pain management, procedures, bathroom and other care routines, personal items, smoking policy, room service/diet, and visiting hours. Patient/Family are encouraged to report perceived risks to care and to ask questions if they do not understand what they are told or what they should do.
[2024-05-05] MEDS: ACETAMINOPHEN 500 MG TABLET 1000 MG PO (19:02)
[2024-05-05 19:03] LABS: Basophils Percent Auto 0.1 % (0.2-1.2); Eosinophils Absolute Auto 0.1 K/mm3 (0-0.3); Eosinophils Percent Auto 0.5 % (0-4.4); Hematocrit 33.6 % (37.0-47.0); Hemoglobin 10.2 g/dL (12.0-15.0); Immature Granulocyte Absolute 0.08 K/mm3 (0.00-0.031); Immature Granulocyte Percent A 0.8 % (0-0.5); Lymphocytes Absolute Auto 1.51 K/mm3 (0.9-3.2); Lymphocytes Percent Auto 15.1 % (18.3-44.2); Mean Corpuscular HGB Conc 30.4 g/dl (32-36); Mean Corpuscular Hemoglobin 26.2 pg (26-34); Mean Corpuscular Volume 86.2 fl (80-100); Mean Platelet Volume 10.9 fl (7.4-10.4); Monocytes Absolute Auto 0.6 K/mm3 (0.1-0.6); Monocytes Percent Auto 6.4 % (2.6-8.5); Neutrophils Absolute Auto 7.7 K/mm3 (1.3-6.7); Neutrophils Percent Auto 77.1 % (45.5-73.1); Platelet Count Result 311 k/mm3 (150-375); Red Cell Distribution Width 13.2 % (11.5-14.5)
[2024-05-05 19:56] LABS: HIV 1/2 Ab P24 Ag Result Negative (Negative)
[2024-05-05 20:12] LABS: Syphilis IgG/IgM Antibody Negative (Negative)
[2024-05-06] VITALS (286 sets, daily range): BP systolic 93–144; BP diastolic 47–102; PULSE 30–153; TEMP 36.6–37.1; O2SAT 76–100
[2024-05-06] MEDS: PANTOPRAZOLE 40 MG TABLET PO (01:32)
--- OUTSIDE RECORDS SUMMARY | 2024-05-06 05:02 | XMS_ITS | Clinical Summary ---
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
--- OUTSIDE RECORDS SUMMARY | 2024-05-06 05:02 | XMS_ITS | CONTINUITY OF CARE DOCUMENT ---
Author Name allison cooper Address Unknown Organization [facility] Address [id number] [place] [address] [address] [place] [address] Phone [phone] Care Team Providers Care Hoeing Row Boss Name Role Phone Carrie Reyes MD Unavailable Carrie Reyes MD Unavailable INSURANCE PROVIDERS Payer name Policy type / Coverage type Edward red democrat ID RICHARD MEDICAID (2) Medicaid [id number]
--- OUTSIDE RECORDS SUMMARY | 2024-05-06 05:02 | XMS_ITS | Referral Summary ---
Author Organization [facility] Coverity Address [address] [place] [address] Care Team Providers Care Industrial Renderer Name Role Phone Cassie Mccann MD Primary Care Provider [phone] Source Comments [facility],non-[facility] Affiliates and Associated Physician Practices is amultiple site organization consisting of ambulatory clinics and hospital sitesin [place], [place], [place] and [place]. This disclosure is being madepursuant to the Care Everywhere program and may not contain all information available regarding this patient. Last updated 17.[facility] Coverity Allergies Active Allergy Reactions Criticality Noted Date [...] of Treatment Not on file Care Teams Industrial Renderer Relationship Specialty Start Date End Date Cassie Mccann MD [address] [facility] [address] [place] [address] PCP - General 05/02/18
--- OUTSIDE RECORDS SUMMARY | 2024-05-06 05:02 | XMS_ITS | Referral Summary ---
Author Organization [facility] Address [address] [place] [address] Care Team Providers Care Carrier Operator Name Role Phone Christiano Holden MD Primary Care Provider [phone] Allergies Active Allergy Reactions Criticality Noted Date [...] on file Legal Sex Female 7:15 PM ECONOMIC CONSULTANT Gender Identity Not on file Sexual Orientation [...] Treatment Not on file Insurance Care Teams Carrier Operator Relationship Specialty Start Date End Date Christiano Holden MD PCP - General Emergency Medicine 03/15/21
--- OUTSIDE RECORDS SUMMARY | 2024-05-06 05:02 | XMS_ITS ---
Author Organization [facility] Address [address] [place] [address] Care Team Providers Care Make Up Editor Name Role Phone Alvarez Claus Primary Care Provider Jonh Foote Unavailable [phone] [facility], SR Adult MARU Unavailabl e [phone] Negro Deluca Unavailable REASON FOR VISIT PRAPARE Assessment Social History Sex Assigned At : Social History Observation Description Sex Assigned At Female Encounters Encounter Location Date Provider Diagnosis [address] [address] 01/16/2024 Negro Deluca Plan Of Treatment No Information Progress Notes * Teresa FLORES NDOB:1990 (33 yo F)Acc No.[id number]:01/16/2024 Patient: Alexa SOLOTeresa :1990 A ge:33 Y S ex:Female Address:[place], [address] Subjective: * Chief Complaints: * P RAPARE Assessment * Medical History: * Surgical History: * Hospitalization/Major Diagno stic Procedure: * Medications: Objective: * Vitals: * Physical Examination: Assessment: Plan: * Treatment: * Procedure Codes: * true * Date: Generated for Printi ng/Faxing/eTransmitting on: 0 05/06/2024 05:02 AM VOCATIONAL CHILDCARE TEACHER
--- OUTSIDE RECORDS SUMMARY | 2024-05-06 05:02 | XMS_ITS | Clinical Summary ---
Author Organization [facility] Address [address] [place] [address] Care Team Providers Care Multiple Tube Winding Machine Operator Name Role Phone Christiano Holden MD Primary Care Provider [phone] Allergies Active Allergy Reactions Criticality Noted Date [...] History Medical History Date Comments Drug abuse (HCC) Social History Tobacco Use Types Packs/Day Years Used Date Smoking Tobacco: Never Assessed Comments Unknown Sex and Gender Information Value Date Recorded Sex Assigned at Not on file Legal Sex Female 7:15 PM GLUTEN SETTLING TENDER Gender Identity Not on file Sexual Orientation [...] to complete this topic Insurance Care Teams Multiple Tube Winding Machine Operator Relationship Specialty Start Date End Date Christiano Holden MD PCP - General Emergency Medicine 03/15/21
--- OUTSIDE RECORDS SUMMARY | 2024-05-06 05:02 | XMS_ITS | Clinical Summary ---
Author Organization [facility] [employer] Address [address] [place] [address] Care Team Providers Care Science Manager Name Role Phone Cassie Mccann MD Primary Care Provider [phone] Source Comments [facility],non-[facility] Affiliates and Associated Physician Practices is amultiple site organization consisting of ambulatory clinics and hospital sitesin [place] and [place]. This disclosure is being madepursuant to the Care Everywhere program and may not contain all information available regarding this patient. Last updated 17.[facility] [employer] Allergies Active Allergy Reactions Criticality Noted Date [...] age to complete this topic Care Teams Science Manager Relationship Specialty Start Date End Date Cassie Mccann MD [address] [facility] [address] [place] [address] PCP - General 05/02/18
--- OUTSIDE RECORDS SUMMARY | 2024-05-06 05:02 | XMS_ITS | Patient Health Summary ---
Author Organization [facility] Address [address] [place] [address] Care Team Providers Care Quality Control Manager Name Role Phone Cassie Mccann MD Primary Care Provider [phone] Note from [facility],non-owned Affiliates and Associated Physician Practices is amultiple site organization consisting of ambulatory clinics and hospital sitesin [place], [place], [place] and [place]. This disclosure is being madepursuant to the Care Everywhere program and may not contain all information available regarding this patient. 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 PATIENT MUST BE PLACED ON CONTACT ISOLATION PRECAUTIONS. Culture Wound MULTI-DRUG RESISTANT ORGANISM(A) [facility] Comment:Multi-Drug Resistant Organism Gram Stain Many Gram positive cocci in pairs and clusters [facility] Wound 02/27/2014 12:5 6 PM CORRUGATED BOX MACHINE OPERATOR 02/27/2014 8:53 PM CORRUGATED BOX MACHINE OPERATOR Narrative [facility] - 03/02/2014 11:49 AM CORRUGATED BOX MACHINE OPERATOR Aretha#[id number] Donnie Loc//Bed: ED// Source: facial abscess Gram [...] Historical Provider LAB - MICROBIOLOG Y ORDERABLES [address] [phone] * CULTURE BLOOD (08/24/2013 10:25 PM CDT) Only the most recent of2 resultswithin the time period is included. Culture Blood No Growth at 5 days [facility] Blood specimen (specimen) BLOOD SPECIMEN / Unknown 08/24/2013 10:25 PM CDT 08/25/2013 9:18 AM CDT Narrative [facility] - 08/30/2013 9:30 AM CDT DonnieSpecimen#[id number] Donnie Loc/Rm/Bed: ED// Historical Provider LAB - MICROBIOLOG Y ORDERABLES Performing Organization Address City/[facility]/ZIP Co de Phone Number [address] [phone] * SONOGRAM - COMPLETE (04/25/2011 11:29 AM CORRUGATED BOX MACHINE OPERATOR) Anatomical Region Laterality Modality Other 04/25/2011 11:2 9 AM CORRUGATED BOX MACHINE OPERATOR Narrative 04/25/2011 6:37 PM CORRUGATED BOX MACHINE OPERATOR [facility] PHONE: FAX: Pat. Name: TERESA FLORES. No: [id number] Study Date: 04/25/2011 11:29am , Age: 4 1990, 20 Pregnancies: 2, Para 0, Ab 1 LMP: 10/16/2010 GA by LMP: 27w2d GA by US: 27w0d GA Selected: 27w2d (LMP) MARCEL: 07/23/2011 Referring MD: HODAN COHEN MD Manager Plan: Shila Humphrey RDMS Hist/Ind: Substance Abuse Positive Quad MEASUREMENTS & AGE GROWTH EVALUATION Measurement GA Range Srce %for GA Ratios ----- ---- ------- BPD 6.7 cm 27w1d (89c2f-30z2f) Hadl BPD 47% FL/BPD 0.75 (0.71 - 0.87) HC 24.7 cm 26w6d (66t0g-20j7l) Hadl HC 39% FL/AC 0.22 (0.20 - 0.24) AC 22.5 cm 26w6d (55f7h-70q6d) Hadl AC 41% HC/AC 1.10 (1.00 - 1.18) FL 5.0 cm 27w0d (35a5r-61x5e) Hadl FL 44% CI 0.76 (0.70 - 0.86) HL 4.8 cm 28w2d (89k5v-35t6a) Dhiraj HL 66% GA for sonogram 27w0d (38w6x-10x3a) Weight Estimate: based on (BPD,HC,AC,FL) Avg Weight: [...] 06:37pm Ordering Provider Unlisted MD JACK PARIKH [facility] Care Teams Quality Control Manager Relationship Specialty Start Date End Date Cassie Mccann MD [address] [address] PCP - General 05/02/18
--- OUTSIDE RECORDS SUMMARY | 2024-05-06 05:03 | XMS_ITS | Clinical Summary ---
Author Organization [facility] Address [address] [place] [address] Phone Care Team Providers Care Duralumin Metalworker Name Role Phone Christiano Holden MD Primary Care Provider [phone] Allergies Active Allergy Reactions Criticality Noted Date [...] naloxone HCl (Narcan) 4 MG/0.1ML Liquid 1 Scenic by Nasal route. 11/12/2021 Active Simethicone (GAS-X [...] age to complete this topic Insurance MEDICAID [employer] [address] [id number] Care Teams Duralumin Metalworker Relationship Specialty Start Date End Date Christiano Holden MD [address] [address] PCP - General Family Medicine 06/02/22
--- OUTSIDE RECORDS SUMMARY | 2024-05-06 05:03 | XMS_ITS ---
Author Organization [facility] Address [address] [place] [address] Care Team Providers Care Porcelain Finish Sprayer Name Role Phone Claus Alvarez Primary Care Provider [phone] Jonh Foote Unavailable [phone] [facility], SR Adult MARU Unavailabl e [phone] Negro Deluca Unavailable [phone] REASON FOR VISIT PRAPARE Assessment Social History Tobacco Use: Social History Observation [...] with others, in a hotel, in a alf, living outside on the street, on a beach, or in a park) Are you worried about losing your housing? I cho ose not to answer this question What is the highest level of school that you have finished? 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 Stress is when someone feels tense, nervous, anxious, or can\t sleep at night because their mind is troubled Somewhat In the past year have you sp ent more than 2 nights in a row in a detention, chcf, alf center, or juvenile correctional facility? No Are you a refugee? No What country are you from? [place] Do you feel physically and e motionally safe where you currently live? Unsure In the past year, have you b een afraid of your partner or ex-partner? No PRAPARE Score: 4 Section Notes: Reviewed PDMP Encounters Encounter Location Date Provider Diagnosis [address] [place] [address] 01/16/2024 Negro Deluca Plan Of Treatment No Information Progress Notes * Teresa FLORES NDOB:1990 (33 yo F)Acc No.[id number]:01/16/2024 Patient: Teresa COHEN Nina :1990 A ge:33 Y S ex:Female Address:[place], [address] Subjective: * Chief Complaints: * Tim GROVE Assessment * Medical History: * Surgical History: * Hospitalization/Major Diagno stic Procedure: * Social History: S ocial Determinants: Tim Hammonds ate Completed/Updated: 03/16/2023, W hat is your current housing situation? I do not have housing (staying with others, in a hotel, in a alf, living outside on the street, on a beach, or in a park), A re you worried about losing your housing? I choose not to answer this question, W hat is the highest level of school that you have finished? H igh school diploma or GED, W hat is your current work situation? F ull time work, I n the past year, have you or any family members you live with been unable to get any of the following when it was really needed? Check all that apply I choose not to answer this question, H as lack of transportation kept you from medical appointments, meetings, work or from getting things needed for daily living? N o, H ow often do you see or talk to people that you care about and feel close to? (For example: talking to friends on the phone, visiting friends or family, going to anglican or club meetings) M ore than 5 times a week, H ow stressed are you? Stress is when someone feels tense, nervous, anxious, or can\t sleep at night because their mind is troubled S omewhat, I n the past year have you spent more than 2 nights in a row in a detention, chcf, alf center, or juvenile correctional facility? N o, A re you a refugee? N o, W hat country are you from? [place], D o you feel physically and emotionally safe where you currently live? U nsure, I n the past year, have you been afraid of your partner or ex-partner??No, P RAPARE Score: 4 . T obacco Use: D ont use, Tobacco Use/Smoking A re you a c urrent every day smoker, A dditional Findings: Tobacco User L ight cigarette smoker ((1-9 cigs/day). D rugs/Alcohol: A lcohol Screen (Audit-C) D id you have a drink containing alcohol in the past year? N o, P oints 0 , I nterpretation N egative. R eviewed PDMP. * Medications: Objective: * Vitals: * Physical Examination: Assessment: Plan: * Treatment: * Procedure Codes: * true * Date: Generated for Rory weaver/Paty/eTransmitting on: 0 05/06/2024 05:02 AM POULTRY CUTTER
--- OUTSIDE RECORDS SUMMARY | 2024-05-06 05:03 | XMS_ITS | Encounter Summary ---
Author Organization [facility] Address [address] [place] [address] Care Team Providers Care Supervisor Road Administrator Name Role Phone Cassie Mccann MD Primary Care Provider [phone] Encounter Details Date Type Department Care Team (Late st Contact Info) Description 01/05/2017 [place] [address] , Generic Conversion, Social History Tobacco Use [...] on filedocumented in this encounter Care Teams Supervisor Road Administrator Relationship Specialty [place] [address] [place] [address] PCP - General 11/12/14 documented as of this encounter
--- OUTSIDE RECORDS SUMMARY | 2024-05-06 05:03 | XMS_ITS ---
Author Organization [facility] Address [address] [place] [address] Care Team Providers Care Envelope Sealing Machine Operator Name Role Phone Claus Alvarez Primary Care Provider [phone] Jonh Foote Unavailable [phone] [facility], SR Adult MARU Unavailabl e [phone] Negro Deluca Unavailable REASON FOR VISIT PRAPARE Assess Social History Sex Assigned At : Social History Observation Description Sex Assigned At Female Encounters Encounter Location Date Provider Diagnosis [address] [address] 01/21/2024 Negor Deluca Plan Of Treatment No Information Progress Notes * Teresa FLORES NDOB:1990 (33 yo F)Acc No.[id number]:01/21/2024 Patient: Alexa AARONTeresa BOSCH :1990 A ge:33 Y S ex:Female Address:[place], [address] Subjective: * Chief Complaints: * P RAPARE Assess * Medical History: * Surgical History: * Hospitalization/Major Diagno stic Procedure: * Medications: Objective: * Vitals: * Physical Examination: Assessment: Plan: * Treatment: * Procedure Codes: * true * Date: Generated for Printi ng/Faxing/eTransmitting on: 0 05/06/2024 05:03 AM DELICATESSEN DEPARTMENT MANAGER
[2024-05-06] MEDS: OXYTOCIN 30 UNITS/NS 500 ML 30 UNITS/500 ML BAG IV CONT (05:21)
--- NOTE | 2024-05-06 07:32 | WPDHPUPDATE1 ---
History and Physical Update Update Date/Time: 05/06/24 07:32 33-year-old multiparous female at 38 weeks gestation with nonreassuring heart tones and oligohydramnios. Experienced heart rate changes after external cephalic version yesterday. Oligo hydramnios, ultrasound. We agreed to proceed induction of labor. 1/2 cm, 50%, -2, clear fluid. Reassuring heart tones History and Physical has been reviewed, including an updated exam of the patient. There are NO changes in the patient's condition. Risks, benefits, and alternatives have been discussed and questions answered. Patient agrees to proceed with procedure.
[2024-05-06] MEDS: LACTATED RINGERS 1,000 ML 125 ML IV CONT ×2 (12:40→20:30)
[2024-05-06] MEDS: NICOTINE (*PBKC) 2 MG GUM PO ×2 (17:34→22:52)
[2024-05-06] MEDS: diphenhydrAMINE HCl INJ 50 MG/ML VIAL 25 MG IV PUSH (22:53)
[2024-05-07] VITALS (12 sets, daily range): BP systolic 97–165; BP diastolic 50–94; PULSE 80–98; RESP 16; TEMP 36.2–37.1; O2SAT 96–98
--- NOTE | 2024-05-07 00:34 | PM.OBPRVD ---
OB - Vaginal Delivery Note Procedure Delivery date: 05/07/24 Events: Breech Presentation Induction method: AROM and Per Pitocin Protocol Delivery monitor: External FHT and External Uterine Route of delivery: Episiotomy description: None Laceration Description: Labial Delivery repair: vicryl Specimen: No Quantitative Blood Loss (ml): 125 Anesthesia type: Epidural Disposition: Floor Complications: No immediate complications Baby Date of : 05/07/24
[2024-05-07] MEDS: OXYTOCIN 30 UNITS/NS 500 ML 30 UNITS/500 ML BAG 125 UNITS IV CONT (00:50)
[2024-05-07] MEDS: IBUPROFEN 600 MG TABLET PO ×3 (01:27→16:30)
[2024-05-07] MEDS: ACETAMINOPHEN 325 MG TABLET 650 MG PO ×2 (01:28→12:30)
[2024-05-07] MEDS: BENZOCAINE 20% AER SPR (*SP) 56 GM CAN 1 SPRAY TOPICAL (02:09)
[2024-05-07] MEDS: WITCH HAZEL 40 PADS 1 PAD TOPICAL (02:09)
--- NOTE | 2024-05-07 03:25 | PC.NURSE ---
After transporting pt to , I told the pt I was going to reconnect the pitocin to her IV. Pt asked why she was still receiving pitocin. I explained to her the risk of hemorrhage and how pitocin prevents that. Pt stated she does not want any more pitocin. I reiterated the risk of hemorrhage and what actions might be taken if she bleeds too much. Pt restated she did not want any more pitocin. I relayed this to her nurse, KRISSY Dai, and KRISSY Jon, charge nurse.
--- NOTE | 2024-05-07 07:14 | OBPPTRN ---
Patient transferred to post room #279 via wheelchair. Support person present. Oriented to unit, room, information board, rooming in, admission packet and security measures. Patient verbalizes understanding.
[2024-05-07] MEDS: POLYSACCHARIDE IRON COMPLEX 150 MG CAPSULE PO (09:00)
[2024-05-07] MEDS: MULTIVIT/MIN/PREN/FOL AC/IRON TABLET 1 TAB PO (09:00)
--- NOTE | 2024-05-07 10:10 | PC.NURSE ---
Bhupendra here (Care Coordination) No concerns - patient needs carseat upon discharge.
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
--- NOTE | 2024-05-07 18:39 | PC.NURSE ---
1450 Introductions were made, then consulted with patient to assess needs related to . Discussed with mother her?plans to feed?her infant and the?experience so far. Per mother she had attempted at the breast a few times but baby would not latch and then baby had some low blood sugars so she was ok with baby taking just the bottle. Mother did bring her own breast pump that she would like set up and to use. RN set up her Motif breast pump and gave instructions given on cleaning, care, usage, that there should be no pain, pumping schedule for milk production, collection, and storage of human milk. Patient was assessed for correct placement, flange size (both nipples measured 18mm and using size 21 flange), to pump for comfort and nipple stretching/stimulation for adequate milk production every 3 hours (8 times in 24 hours) 1-2 times at night. Parents are encouraged to record the pumping schedule on the feeding sheet.?Per mother she would like to see if baby will latch after the next blood sugar check, RN encouraged mother to call out for assistance. Mother voiced understanding of the education shared along with mom/baby guide and the pump measurement, flange fit handout for additional resource information. Resources provided for inpatient and outpatient services with the feeding sheet, mom/baby guide and name written on the communication board. Mother voiced understanding of information and will call if there is a request for assistance. Reported to the Primary RN. 1600 RN checked in with mother, baby had another low blood sugar and received glucose gel and formula, she would like to go ahead and use her breast pump. RN reviewed how to use her pump and she was able to pump for about 10 mins, per mom she states This feels weird, it doesn't hurt, just weird . RN encouraged mother to call for assistance with and if baby is unable to latch she should use her breast pump to protect her milk supply. Mother agreed. Reported to Primary RN.
[2024-05-08 05:26] LABS: Hematocrit 28.8 % (37.0-47.0)
[2024-05-08] MEDS: POLYSACCHARIDE IRON COMPLEX 150 MG CAPSULE PO (07:21)
[2024-05-08] MEDS: MULTIVIT/MIN/PREN/FOL AC/IRON TABLET 1 TAB PO (07:21)
--- NOTE | 2024-05-08 08:50 | P.DS_ITS ---
DS: Admitting Diagnosis Discharge Date May 08, 2024 Admitting Diagnosis term DS: Discharge Diagnosis Discharge Diagnosis (1) Term delivered: Code(s): O80 - Encounter for full-term uncomplicated delivery Status: Acute OB - DS: Summary OB Procedures : None OB Procedures Intrapartum: Spontaneous Vag Delivery OB Procedures: : None Peripartum Data Laceration Description: Labial Episiotomy description: None Time Spent with Patient Time attestation: Total time spent providing and/or coordinating discharge services: DS: Data Data Completed and Pending Labs on day of discharge: Labs from last 24 hours 05/08/24 05:13 Hgb 9.0 L Hct 28.8 L Discharge Plan Discharge Discharging Clinician: Pravin Almodovar Patient Disposition: Home, Self-Care Activity: pelvic rest Diet: regular Patient Instructions: Antibiotic Form Patient Language: Malaysian Stand Alone Forms: General Discharge Information Follow-up/Referrals: Pravin Almodovar MD [Physician] - Discharge Medications: No Action pantoprazole 40 mg tablet,delayed release (DR/EC) 40 mg PO HS Date of admission: 05/05/24 17:05 Primary Care Provider: UNKNOWN,DOCTOR Admitting Provider: Pravin Almodovar Attending physician on admission: Pravin Almodovar Condition: Stable
--- NOTE | 2024-05-08 08:50 | P.PNOB_ITS ---
OB - PN: Subj Subjective Date/time seen: 05/08/24 08:50 Patient comments: no complaints, pain well controlled, incisional pain, tolerating diet and flatus present OB - PN: Obj Data Labs 05/08/24 05:13 Labs: Laboratory Results - last 24 hr 05/08/24 05:13 Hgb 9.0 L Hct 28.8 L OB - PN A/P Plan day: 1 Plan: routine care Comments: No problems, routine care Time Spent With Patient Time: Total time spent is greater than 50% in coordination of care (as documented) at patient's floor/unit and/or counseling patient: Exam 2 Const: General: comfortable, no acute distress and alert Resp: Effort & Inspection: normal respiratory effort Auscultation: no crackles, no rales and no rhonchi Cardio: Rate: regular rate Heart sounds: no click, no murmurs and no rubs GI: Inspection: non-distended GI Palp: No Tenderness to palpation present (GI) Auscultation: normal bowel sounds Other: Incision - CDI Extrem: General: normal to inspection, no pedal edema and no calf tenderness
[2024-05-08 08:55] VITALS: BP 118/78; PULSE 80; RESP 16; TEMP 36.4; O2SAT 97
--- NOTE | 2024-05-08 09:04 | WPDANLDPN2 ---
Anes-Prog Note L&D Date/Time: 05/08/24 09:04 Comfortable throughout: labor and delivery Neuraxial method: epidural Epidural/Spinal procedure site: clean & non-tender Neuro status: Neuro function grossly intact. Cardiovascular status: normal Respiratory status: normal Airway patency: baseline Mental status: baseline Post-Op hydration status: normal Vital Signs: Last Vital Signs Temp 37.0 C 05/07/24 20:00 Pulse 82 05/07/24 20:00 Resp 16 05/07/24 20:00 BP 114/71 05/07/24 20:00 Pulse Ox 98 05/07/24 20:00 O2 Del Method Room Air 05/07/24 20:00 Pain score (VAS): 1 Post-procedural complaints: none Patient feedback: Patient satisfied with anesthetic care.
--- NOTE | 2024-05-08 12:00 | PC.NURSE ---
Consulted with mother concerning needs and she shared her ability to independently use her breast pump without pain, she is concerned because she is not able to pump any colostrum. RN reeducated mother about supply and demand and that she needs to continue to pump at least 8 times in 24 hours, with 1-2 times at night to protect her milk supply. Baby is being transferred to [facility] and RN explained that mother will also have support there as well if she has any questions or concerns. Reinforced understanding of milk production, transition of milk, signs of adequate intake, transition of stool, prevention/relief of engorgement, plugged ducts, mastitis, community resources, and when to call a provider using the resource of the feeding sheet along with the mom and baby guide. Mother voiced understanding of the information shared, when to call for assistance, denies any additional assistance or education at this time. Reported to the Primary RN.
--- NOTE | 2024-05-08 13:24 | PCCCNOTE ---
Received phone call from Sharona with [employer] [phone] in regards to DCFS call. Per Sharona mother is ok to discharge home with baby paramjti holland when medically stable. Sharona has address and phone number for mother and plans to call her on Thursday 05/11.
== END 2024-05-08 14:07 | disposition home or self-care (01) | DRG 560 ==
LOC: ANHOBOP 18:41 → ANHLDR 05-06 05:00 → ANHOB2 05-07 04:42
PROVIDERS: Admitting Provider Obstetrics & Gynecology; Visit Provider Obstetrics & Gynecology
DX: O32.1XX0 Maternal care for breech presentation, not applicable or unspecified (principal); Z37.0 Single live birth; Z3A.38 38 weeks gestation of pregnancy; O41.03X0 Oligohydramnios, third trimester, not applicable or unspecified; O70.0 First degree perineal laceration during delivery
CPT/HCPCS: 36415; 76815; 76819; 85014; 85018; 85025; 86593; 86703; 86850; 86900; 86901; 88307; 93005; A9270; G0432; J1200; J2371; J2590; J2795; J3105; J7120